=== PATIENT | female | born 1955 | race Caucasian/White ===

== ENCOUNTER 2020-11-14 06:39 | Outpatient (REF) | payer BC, SELFPAY ==
[2020-11-14 07:39] LABS: MANUAL DIFF FLAG NO
[2020-11-14 07:43] LABS: Basophils Percent Auto 0.4 % (0-2); Eosinophils Absolute Auto 0.2 X10*3/uL (0.0-0.4); Eosinophils Percent Auto 5.1 % (0-4); Hemoglobin 13.4 g/dl (12.0-16.0); Imm Gran Abs Auto 0.02 X10*3/uL (0.00-0.03); Imm Gran Pct Auto 0.4 % (0.0-0.4); Lymphocytes Absolute Auto 1.6 X10*3/uL (1.2-4.9); Lymphocytes Percent Auto 33.8 % (20-40); Mean Corpuscular HGB Conc 31.9 g/dl (31.0-35.0); Mean Corpuscular Hemoglobin 30.7 pg (27.0-33.0); Mean Corpuscular Volume 96.1 fL (80-98); Mean Platelet Volume 9.9 fL (9.4-12.3); Monocytes Absolute Auto 0.4 X10*3/uL (0.1-1.2); Monocytes Percent Auto 7.9 % (2-11); Neutrophils Absolute Auto 2.5 X10*3/uL (2.0-8.3); Neutrophils Percent Auto 52.4 % (45-73); Platelet Count 276 X10*3/uL (160-400); Red Blood Count 4.37 X10*6/uL (4.20-5.50); Red Cell Distribution Width 13.7 % (11.0-16.0); White Blood Count 4.7 X10*3/uL (4.8-10.8)
[2020-11-14 08:00] LABS: Glucose Urine UA NEG (NEG); Leukocyte Esterase Urine 2+ (NEG); Nitrite Urine NEG (NEG); PH 6.5 (5.0-8.0); Specific Gravity - Urine 1.025 (1.005-1.025); Urine Blood NEG (NEG); Urine Ketones NEG (NEG); Urine Protein NEG (NEG-TRACE)
[2020-11-14 08:07] LABS: Appearance Urine HAZY; Color Urine YELLOW
[2020-11-14 08:14] LABS: Estimated Average Glucose 108 mg/dL; Hemoglobin A1c % 5.4 %
[2020-11-14 08:43] LABS: Anion Gap 12 (12-20); Blood Urea Nitrogen 21 mg/dL (9-16); Calcium 8.9 mg/dL (8.4-10.2); Carbon Dioxide 28 mmol/L (22-29); Chloride 108 mmol/L (96-108); Cholesterol 204 mg/dL; Estimated Glomerular Filt Rate > 60; Glucose Fasting 90 mg/dL (60-99); HDL Cholesterol 53 mg/dL; LDL Cholesterol Calculated 128 mg/dl; Potassium 4.2 mmol/l (3.3-5.1); Sodium 144 mmol/L (135-145); Triglycerides 116 mg/dL
[2020-11-14 09:07] LABS: Bacteria Urine TRACE /LPF; RBC Urine 0 /HPF (0); Renal Epithelial Cells Urine 1+ /LPF; Squamous Epithelial Cell Urine 1+ /LPF; WBC Urine 30-49 /HPF (0-4)
== END 2020-11-14 06:40 | disposition home or self-care (01) ==
LOC: HO.LAB 06:39
PROVIDERS: PCP Internal Medicine; Visit Provider Internal Medicine
DX: Z00.00 Encounter for general adult medical examination without abnormal findings (principal); R73.09 Other abnormal glucose
CPT/HCPCS: 36415; 80048; 80061; 81001; 81003; 82043; 83036; 85025

== ENCOUNTER 2021-02-02 07:18 | Outpatient (REF) | payer BC, SELFPAY ==
--- NOTE | ~2021-02-02 | MM_ITS ---
EXAMINATION: BONE DENSITOMETRY CLINICAL INDICATION: Postmenopausal. COMPARISON: Baseline BD dated 11/10/2018. TECHNIQUE: Using a [employer] DXA System (software version: 13.1) manufactured by [employer], dual-energy x-ray absorptiometry was performed of the lumbar spine and left hip. The images are of good technical quality. Summary results are attached. FINDINGS: AP SPINE L1-L4: Current: BMD 0.938 g/cm2, Z-score -0.6, T-score -2.0, osteopenia, 7.2% increase from baseline (<5% change is not significant). Baseline: BMD 0.875 g/cm2. LEFT FEMUR, NECK: Current: BMD 0.800 g/cm2, Z-score -0.4, T-score -1.7, osteopenia. Baseline: BMD 0.807 g/cm2. LEFT FEMUR, TOTAL: Current: BMD 0.918 g/cm2, Z-score 0.3, T-score -0.7, normal, 6.4% increase from baseline (<5% change is not significant). Baseline: BMD 0.863 g/cm2. IDENTIFIED RISK FACTORS: Menopause. Height loss. HISTORY OF FRACTURE: None listed. MEDICATIONS: Calcium or multivitamin. Vitamin D. MM/XR DEXA axial skeleton IMPRESSION: 1. DIAGNOSIS: Osteopenia based on the lowest T-score value of -2.0 in the lumbar spine applying World Health Organization criteria. 2. 10-YEAR FRACTURE RISK PREDICTION, FRAX: Major osteoporotic fracture (clinical spine, forearm, hip or shoulder) 9.3%. Hip fracture 1.1%. 3. Treatment Recommendations: NOF guidelines recommend consideration for treatment in postmenopausal women and men age 50 and older presenting with the following: -A hip or vertebral (clinical or morphometric) fracture. -T-score less than or equal to -2.5 at the femoral neck or spine after appropriate evaluation to exclude secondary causes. -Low bone mass at the hip or spine and a 10-year fracture probability by FRAX of greater than or equal to 3% for hip fracture or greater than or equal to 20% for major osteoporotic fracture based on the [place] adapted WHO algorithm. 4. Other Recommendations: All treatment decisions require clinical judgment and consideration of individual patient factors, including patient preferences, comorbidities, previous drug use, risk factors not captured in the FRAX model (e.g. frailty, falls, vitamin D deficiency, increased bone turnover, interval significant decline in bone density) and possible under or overestimation of fracture risk by FRAX. Additional medical evaluation for secondary cause of low bone mineral density may be appropriate. FUTURE SCAN RECOMMENDATION: People with diagnosed cases of osteoporosis or at high risk for fracture should have regular bone mineral density tests. For patients eligible for Medicare, routine testing is allowed once every 2 years. The testing frequency can be increased to one year for patients who have rapidly progressing disease, those who are receiving or discontinuing medical therapy to restore bone mass, or have additional risk factors.
--- NOTE | ~2021-02-02 | MM_ITS ---
EXAMINATION: MM SCREENING DIGITAL BREAST TOMOSYNTHESIS, BILATERAL CLINICAL INFORMATION: Screening. Asymptomatic. The lifetime risk of breast cancer based on the Tyrer-Cuzick Model is 4.4%. COMPARISON: Mammography: October 01, 2019 and studies dating back to March 23, 2013 TECHNIQUE: Digital breast tomosynthesis is performed in both the craniocaudal and mediolateral oblique views along with computer-aided detection (CAD). Synthesized 2D images are generated from the tomosynthesis. FINDINGS: The breasts are heterogeneously dense, which may obscure small masses (ACR BI-RADS breast composition Category c). There are no significant masses, abnormal calcifications, or other abnormalities. MM/MM tomosynthesis screening BI IMPRESSION: There are no significant changes from prior study. ASSESSMENT: BI-RADS 1: Negative RECOMMENDATION: Routine annual mammography screening. This patient's information was entered into a reminder system with a target due date for their next mammogram.
== END 2021-02-02 07:19 | disposition home or self-care (01) ==
LOC: HO.MAMMO 07:18
PROVIDERS: PCP Internal Medicine; Visit Provider Internal Medicine
DX: Z13.820 Encounter for screening for osteoporosis (principal); Z78.0 Asymptomatic menopausal state; R29.890 Loss of height; Z79.899 Other long term (current) drug therapy; Z12.31 Encounter for screening mammogram for malignant neoplasm of breast
CPT/HCPCS: 77063; 77067; 77080

== ENCOUNTER 2022-01-10 11:33 | Outpatient (REF) | payer BC, SELFPAY ==
[2022-01-10 11:37] LABS: MANUAL DIFF FLAG NO
[2022-01-10 11:46] LABS: Basophils Percent Auto 0.4 % (0-2); Eosinophils Absolute Auto 0.2 X10*3/uL (0.0-0.4); Eosinophils Percent Auto 4.4 % (0-4); Hematocrit 46.6 % (37.0-47.0); Hemoglobin 14.8 g/dl (12.0-16.0); Imm Gran Abs Auto 0.01 X10*3/uL (0.00-0.03); Imm Gran Pct Auto 0.2 % (0.0-0.4); Lymphocytes Absolute Auto 1.8 X10*3/uL (1.2-4.9); Lymphocytes Percent Auto 34.2 % (20-40); Mean Corpuscular HGB Conc 31.8 g/dl (31.0-35.0); Mean Corpuscular Hemoglobin 30.2 pg (27.0-33.0); Mean Corpuscular Volume 95.1 fL (80.0-98.0); Mean Platelet Volume 10.4 fL (9.4-12.3); Monocytes Absolute Auto 0.4 X10*3/uL (0.1-1.2); Neutrophils Absolute Auto 2.8 x10*3/uL (2.0-8.3); Neutrophils Percent Auto 53.8 % (45-73); Platelet Count 295 X10*3/uL (160-400); Red Cell Distribution Width 12.7 % (11.0-16.0); White Blood Count 5.3 X10*3/uL (4.8-10.8)
[2022-01-10 11:58] LABS: Alanine Aminotransferase 20 U/L (0-31); Albumin Level 4.3 g/dL (3.5-5.0); Alkaline Phosphatase 75 U/L (39-117); Anion Gap 14 (12-20); Aspartate Amino Transferase 20 U/L (5-31); Bilirubin Total 0.7 mg/dL (0.0-1.0); Blood Urea Nitrogen 18 mg/dL (9-16); Calcium 9.9 mg/dL (8.4-10.2); Carbon Dioxide 26 mmol/L (22-29); Chloride 107 mmol/L (96-108); Cholesterol 208 mg/dL; Estimated Glomerular Filt Rate 51; Glucose Fasting 100 mg/dL (60-99); HDL Cholesterol 58 mg/dL; LDL Cholesterol Calculated 126 mg/dl; Potassium 4.5 mmol/L (3.3-5.1); Sodium 142 mmol/L (135-145); Total Protein 6.8 g/dL (6.5-8.0); Triglycerides 123 mg/dL
[2022-01-10 12:57] LABS: Estimated Average Glucose 105 mg/dL; Hemoglobin A1c % 5.3 %
== END 2022-01-10 11:34 | disposition home or self-care (01) ==
LOC: HO.LNP 11:33
PROVIDERS: Visit Provider Internal Medicine
DX: Z00.00 Encounter for general adult medical examination without abnormal findings (principal); R73.03 Prediabetes
CPT/HCPCS: 80053; 80061; 83036; 85025

== ENCOUNTER 2022-11-14 07:27 | Outpatient (REF) | payer BC, SELFPAY ==
--- NOTE | ~2022-11-14 | MM_ITS ---
EXAMINATION: MM SCREENING DIGITAL BREAST TOMOSYNTHESIS, BILATERAL CLINICAL INFORMATION: Screening. Asymptomatic. The lifetime risk of breast cancer based on the Tyrer-Cuzick Model is 3%. COMPARISON: Mammography: 02/02/2021, outside mammography 10/01/2019, 12/09/2014 ([facility]) TECHNIQUE: Digital breast tomosynthesis is performed in both the craniocaudal and mediolateral oblique views along with computer-aided detection (CAD). Synthesized 2D images are generated from the tomosynthesis. FINDINGS: The breasts are heterogeneously dense, which may obscure small masses (ACR BI-RADS breast composition Category c). There is a fibronodular parenchymal pattern similar to prior studies. No developing density or interval architectural abnormality. There are no significant masses, abnormal calcifications, or other abnormalities. The axilla and skin contours are unremarkable. MM/MM tomosynthesis screening BI IMPRESSION: No mammographic evidence of malignancy. ASSESSMENT: BI-RADS 1: Negative RECOMMENDATION: Routine annual mammography screening. This patient's information was entered into a reminder system with a target due date for their next mammogram.
== END 2022-11-14 07:28 | disposition home or self-care (01) ==
LOC: HO.MAMMO 07:27
PROVIDERS: PCP Internal Medicine; Visit Provider Internal Medicine
DX: Z12.31 Encounter for screening mammogram for malignant neoplasm of breast (principal)
CPT/HCPCS: 77063; 77067

== ENCOUNTER 2023-01-21 12:23 | Outpatient (REF) | payer BC, SELFPAY ==
[2023-01-21 12:26] LABS: MANUAL DIFF FLAG NO
[2023-01-21 13:17] LABS: Basophils Percent Auto 0.8 % (0-2); Eosinophils Absolute Auto 0.2 X10*3/uL (0.0-0.4); Eosinophils Percent Auto 3.9 % (0-4); Hemoglobin 14.6 g/dl (12.0-16.0); Imm Gran Abs Auto 0.01 X10*3/uL (0.00-0.03); Imm Gran Pct Auto 0.2 % (0.0-0.4); Lymphocytes Absolute Auto 1.8 X10*3/uL (1.2-4.9); Lymphocytes Percent Auto 35.9 % (20-40); Mean Corpuscular HGB Conc 31.7 g/dl (31.0-35.0); Mean Corpuscular Hemoglobin 30.9 pg (27.0-33.0); Mean Corpuscular Volume 97.3 fL (80.0-98.0); Mean Platelet Volume 10.4 fL (9.4-12.3); Monocytes Absolute Auto 0.3 X10*3/uL (0.1-1.2); Monocytes Percent Auto 6.4 % (2-11); Neutrophils Absolute Auto 2.6 x10*3/uL (2.0-8.3); Neutrophils Percent Auto 52.8 % (45-73); Platelet Count 294 X10*3/uL (160-400); Red Blood Count 4.73 X10*6/uL (4.20-5.50); White Blood Count 4.9 X10*3/uL (4.8-10.8)
[2023-01-21 13:27] LABS: Alanine Aminotransferase 14 U/L (0-31); Albumin Level 4.2 g/dL (3.5-5.0); Alkaline Phosphatase 72 U/L (39-117); Anion Gap 13 (12-20); Aspartate Amino Transferase 19 U/L (5-31); Bilirubin Total 0.6 mg/dL (0.0-1.0); Blood Urea Nitrogen 20 mg/dL (9-16); Calcium 9.2 mg/dL (8.4-10.2); Carbon Dioxide 28 mmol/L (22-29); Chloride 108 mmol/L (96-108); Cholesterol 206 mg/dL; Estimated Glomerular Filt Rate 57; Glucose Fasting 102 mg/dL (60-99); HDL Cholesterol 58 mg/dL; LDL Cholesterol Calculated 125 mg/dl; Potassium 4.6 mmol/L (3.3-5.1); Sodium 144 mmol/L (135-145); Total Protein 6.3 g/dL (6.5-8.0); Triglycerides 115 mg/dL
[2023-01-21 13:50] LABS: Estimated Average Glucose 103 mg/dL; Hemoglobin A1c % 5.2 %
[2023-01-21 13:56] LABS: Appearance Urine Clear; Color Urine Yellow; Glucose Urine UA Negative (Negative); Leukocyte Esterase Urine Large (3+) (Negative); Nitrite Urine Negative (Negative); UMIC TRIGGER UACC YES; Urine Blood Negative (Negative); Urine Ketones Negative (Negative); Urine Protein Negative (Neg-Trace)
[2023-01-21 14:16] LABS: RBC Urine 0-2 /HPF (0-2); UACC Culture Trigger YES
[2023-01-21 14:17] LABS: Bacteria Urine Trace (None Seen); Hyaline Casts Urine 0-2 /LPF (0-2); Squamous Epithelial Cell Urine 0-2 /HPF (0-2)
[2023-01-21 14:21] LABS: Creatinine Urine 184.54 mg/dL; Microalbum/Creatinine Ratio Ur 13.5 ug/mg cr
== END 2023-01-21 12:24 | disposition home or self-care (01) ==
LOC: HO.LNP 12:23
PROVIDERS: Visit Provider Internal Medicine
DX: Z00.00 Encounter for general adult medical examination without abnormal findings (principal); R73.03 Prediabetes; R82.90 Unspecified abnormal findings in urine
CPT/HCPCS: 80053; 80061; 81001; 82043; 83036; 85025; 87086

== ENCOUNTER 2024-01-22 10:54 | Outpatient (REF) | payer MEDICARE, SELFPAY ==
[2024-01-22 10:57] LABS: MANUAL DIFF FLAG NO
[2024-01-22 11:27] LABS: Basophils Percent Auto 0.2 % (0-2); Eosinophils Absolute Auto 0.2 X10*3/uL (0.0-0.4); Eosinophils Percent Auto 3.3 % (0-4); Hematocrit 46.4 % (37.0-47.0); Hemoglobin 14.6 g/dl (12.0-16.0); Imm Gran Abs Auto 0.02 X10*3/uL (0.00-0.03); Imm Gran Pct Auto 0.4 % (0.0-0.4); Lymphocytes Absolute Auto 1.7 X10*3/uL (1.2-4.9); Lymphocytes Percent Auto 34.2 % (20-40); Mean Corpuscular HGB Conc 31.5 g/dl (31.0-35.0); Mean Corpuscular Volume 95.5 fL (80.0-98.0); Mean Platelet Volume 10.3 fL (9.4-12.3); Monocytes Absolute Auto 0.4 X10*3/uL (0.1-1.2); Monocytes Percent Auto 7.5 % (2-11); Neutrophils Absolute Auto 2.6 x10*3/uL (2.0-8.3); Neutrophils Percent Auto 54.4 % (45-73); Platelet Count 314 X10*3/uL (160-400); Red Blood Count 4.86 X10*6/uL (4.20-5.50); Red Cell Distribution Width 13.2 % (11.0-16.0); White Blood Count 4.8 X10*3/uL (4.8-10.8)
[2024-01-22 11:47] LABS: Estimated Average Glucose 103 mg/dL; Hemoglobin A1c % 5.2 % (<6.0)
[2024-01-22 11:58] LABS: Appearance Urine Clear; Color Urine Yellow; Glucose Urine UA Negative (Negative); Leukocyte Esterase Urine Small (1+) (Negative); Nitrite Urine Negative (Negative); UMIC TRIGGER UACC YES; Urine Blood Negative (Negative); Urine Ketones Negative (Negative); Urine Protein Negative (Neg-Trace)
[2024-01-22 12:04] LABS: Alanine Aminotransferase 20 U/L (0-31); Albumin Level 4.2 g/dL (3.5-5.0); Alkaline Phosphatase 96 U/L (39-117); Anion Gap 8 (12-20); Aspartate Amino Transferase 18 U/L (5-31); Bilirubin Total 0.4 mg/dL (0.0-1.0); Blood Urea Nitrogen 21 mg/dL (9-16); Calcium 9.4 mg/dL (8.4-10.2); Carbon Dioxide 29 mmol/L (22-29); Chloride 106 mmol/L (96-108); Cholesterol 206 mg/dL (<200); Estimated Glomerular Filt Rate > 60; Glucose Fasting 108 mg/dL (60-99); HDL Cholesterol 69 mg/dL (>40); LDL Cholesterol Calculated 120 mg/dL (<100); Sodium 139 mmol/L (135-145); Triglycerides 89 mg/dL (<150)
[2024-01-22 12:06] LABS: Microalbumin Urine < 5.0 mg/L
[2024-01-22 12:25] LABS: Bacteria Urine None Seen (None Seen); Hyaline Casts Urine 0-2 /LPF (0-2); RBC Urine 0-2 /HPF (0-2); Squamous Epithelial Cell Urine 0-2 /HPF (0-2); UACC Culture Trigger YES; WBC Urine 0-5 /HPF (0-5)
== END 2024-01-22 10:55 | disposition home or self-care (01) ==
LOC: HO.LNP 10:54
PROVIDERS: Visit Provider Internal Medicine
DX: Z00.00 Encounter for general adult medical examination without abnormal findings (principal); R73.03 Prediabetes
CPT/HCPCS: 80053; 80061; 81001; 82043; 82570; 83036; 85025; 87086

== ENCOUNTER 2024-02-04 10:47 | Outpatient (REF) | payer MEDICARE, SELFPAY ==
--- NOTE | ~2024-02-04 | XR_ITS ---
EXAMINATION: XR KNEE, LEFT CLINICAL INFORMATION: Chronic pain, without injury. COMPARISON: None available. TECHNIQUE: Frontal, tunnel and lateral views of the left knee are submitted. FINDINGS: Bony alignment and mineralization are normal. The lateral, medial and patellofemoral joint space compartments are well-maintained. There is slight peripheral osteophyte formation of the medial and patellofemoral joint space compartments. No fracture, dislocation or joint effusion is seen. There is no foreign body. XR/XR knee LT 3V IMPRESSION: 1. There is minimal osteoarthritic change of the medial and patellofemoral joint space compartments of the left knee. 2. No fracture, dislocation or joint effusion is seen.
--- NOTE | ~2024-02-04 | XR_ITS ---
EXAMINATION: XR HIP, RIGHT CLINICAL INFORMATION: Arthritis. COMPARISON: None available. TECHNIQUE: AP and frog-leg lateral views of the right hip. FINDINGS: No fracture. Alignment is anatomic. Hip joint space is maintained. Soft tissues are unremarkable. XR/XR hip RT min 2V IMPRESSION: Normal right hip.
== END 2024-02-04 10:48 | disposition home or self-care (01) ==
LOC: HO.MAMMO 10:47
PROVIDERS: PCP Internal Medicine; Visit Provider Internal Medicine
DX: Z12.31 Encounter for screening mammogram for malignant neoplasm of breast (principal); M17.12 Unilateral primary osteoarthritis, left knee; M16.11 Unilateral primary osteoarthritis, right hip
CPT/HCPCS: 73502; 73562; 77063; 77067

== ENCOUNTER → 2024-02-04 11:15 | Outpatient (BNV) | payer MEDICARE, SELFPAY | PROVIDERS: PCP Internal Medicine; Visit Provider Radiology Diagnostic Radiology | DX: Z12.31 Encounter for screening mammogram for malignant neoplasm of breast (principal) | CPT/HCPCS: 77063; 77067 ==

== ENCOUNTER 2024-09-13 10:09 | Outpatient (REF) | payer MEDICARE, SELFPAY | END 2024-09-13 10:10 | disposition home or self-care (01) | LOC: HO.MRI 10:09 | PROVIDERS: PCP Internal Medicine; Visit Provider Physical Medicine & Rehabilitation | DX: M54.16 Radiculopathy, lumbar region (principal) | CPT/HCPCS: 72148 ==

== ENCOUNTER 2025-01-27 09:51 | Outpatient (REF) | payer MEDICARE, SELFPAY ==
[2025-01-27 09:54] LABS: MANUAL DIFF FLAG NO
[2025-01-27 10:14] LABS: Basophils Percent Auto 0.6 % (0-2); Eosinophils Absolute Auto 0.2 X10*3/uL (0.0-0.4); Eosinophils Percent Auto 3.6 % (0-4); Hematocrit 46.2 % (37.0-47.0); Hemoglobin 14.7 g/dl (12.0-16.0); Imm Gran Abs Auto 0.02 X10*3/uL (0.00-0.03); Imm Gran Pct Auto 0.4 % (0.0-0.4); Lymphocytes Absolute Auto 1.9 X10*3/uL (1.2-4.9); Lymphocytes Percent Auto 38.6 % (20-40); Mean Corpuscular HGB Conc 31.8 g/dl (31.0-35.0); Mean Corpuscular Hemoglobin 30.4 pg (27.0-33.0); Mean Corpuscular Volume 95.5 fL (80.0-98.0); Mean Platelet Volume 10.1 fL (9.4-12.3); Monocytes Absolute Auto 0.4 X10*3/uL (0.1-1.2); Monocytes Percent Auto 7.8 % (2-11); Neutrophils Absolute Auto 2.4 x10*3/uL (2.0-8.3); Platelet Count 300 X10*3/uL (160-400); Red Blood Count 4.84 X10*6/uL (4.20-5.50); Red Cell Distribution Width 13.2 % (11.0-16.0)
[2025-01-27 10:27] LABS: Estimated Average Glucose 105 mg/dL; Hemoglobin A1C 134.6844 umol/L; Hemoglobin A1c % 5.3 % (<6.0)
[2025-01-27 10:31] LABS: Alanine Aminotransferase 23 U/L (0-31); Albumin Level 4.3 g/dL (3.5-5.0); Alkaline Phosphatase 83 U/L (39-117); Anion Gap 10 (12-20); Aspartate Amino Transferase 23 U/L (5-31); Bilirubin Total 0.5 mg/dL (0.0-1.0); Blood Urea Nitrogen 21 mg/dL (9-16); Calcium 9.2 mg/dL (8.4-10.2); Carbon Dioxide 28 mmol/L (22-29); Chloride 109 mmol/L (96-108); Cholesterol 185 mg/dL (<200); Estimated Glomerular Filt Rate > 60; Glucose Fasting 94 mg/dL (60-99); HDL Cholesterol 61 mg/dL (>40); LDL Cholesterol Calculated 103 mg/dL (<100); Potassium 4.1 mmol/L (3.3-5.1); Sodium 143 mmol/L (135-145); Total Protein 6.8 g/dL (6.5-8.0); Triglycerides 109 mg/dL (<150)
[2025-01-27 10:41] LABS: Appearance Urine Clear; Color Urine Yellow; Glucose Urine UA Negative (Negative); Leukocyte Esterase Urine Moderate (2+) (Negative); Nitrite Urine Negative (Negative); PH 6.5 (5.0-9.0); Specific Gravity - Urine 1.025 (1.005-1.025); UMIC TRIGGER UACC YES; Urine Blood Negative (Negative); Urine Ketones Negative (Negative); Urine Protein Negative (Neg-Trace)
[2025-01-27 10:50] LABS: Bacteria Urine None Seen (None Seen); Hyaline Casts Urine 0-2 /LPF (0-2); RBC Urine 0-2 /HPF (0-2); Squamous Epithelial Cell Urine 0-2 /HPF (0-2); UACC Culture Trigger YES
[2025-01-27 10:52] LABS: Creatinine Urine 121.04 mg/dL; Microalbum/Creatinine Ratio Ur 6.6 ug/mg cr (<30)
--- OUTSIDE RECORDS SUMMARY | 2025-01-27 11:16 | XMS_ITS ---
Author Organization Esa Fleming MD Address [address] [place] [phone] Care Team Providers Care 21 Dealer Name Role Phone Esa Fleming Primary Care Provider [phone] Allergies Allergen (clinical drug ingredient) Drug/Non Drug Allergy documented on EMR Reaction Allergy Type Onset Date Status Codeine Phosphate rash Drug Allergy Active REASON FOR VISIT 4 week Medications Medication SIG (Take, Route, Fr equency, Duration) Notes Start Date End Date Status Ibuprofen 800 MG 1 tablet Orally two times a day for 14 days 06/23/2014 Active Vital Signs Blood pressure systolic 122 mm Hg 08/09/20 24 Blood pressure diastolic 66 mm Hg 024 Height 61 in 08/09/2024 Weight 163 lbs 08/09/2024 BMI 30.80 kg/m2 08/09/2024 Encounters Encounter Location Date Provider Diagnosis Esa Fleming MD [address] [place] [address] [phone] 08/09/2024 Esa Fleming Sciatica of right side M54.31 Assessments Encounter Date Diagnosis (ICD Code) Assessment Notes Treatment Notes Treatment Clinical Notes Section Notes 08/09/2024 Sciatica of right side (ICD-10 - M54.31) awaiting pssp/ long discussion concerning disc treatment and whether and when is needed, Total time spent on the date of the encounter is 35 minutes including both face to face time spent and time spent reviewing documentation, and counseling the patient. Plan Of Treatment Treatment Notes Assessment Notes Sciatica of right side awaiting pssp/ lo ng discussion concerning disc treatment and whether and when is needed, Total time spent on the date of the encounter is 35 minutes including both face to face time spent and time spent reviewing documentation, and counseling the patient. Next Appt Details Provider Name:Esa Evans ier, 02/03/2025 09:30:00 AM, [address] [facility], [address], [place], [place], [phone], Progress Notes * Lo HIDALGO ADOB:1954 (69 yo F)Acc No.[id number]:08/09/2024 Progress Notes Patient:?Lo Hidalgo A Provider:?Esa Fleming MD :[id number]???Age:69 Y???Sex:Female D ate:08/09/2024 Address:[address] [place], [place] [id number] Subjective: * Chief Complaints: * ???4 week * HPI: ???Symptom(s):? patient is a 69 yo female here for 4 week follow up visit, still waiting for mri. [facility] and they say they are going to get the mri. is a little better. feels just a little. limp gone. was lifting bricks all weekend. * ROS:?General/Constitutional:?Denies?Chills.?Denies?Fatigue.?Denies?Fever.?Denies?Headache.?ENT:?Patient denies?decreased sense of smell , any loss of taste , sore throat.?Denies?Sore throat.?Respiratory:?Denies?Cough.?Denies?Shortness of breath at rest.?Denies?Shortness of breath with exertion.?Gastrointestinal:?Denies?Diarrhea.?Denies?Nausea.?Musculoskeletal:?Patient denies?muscle aches.?Peripheral Vascular:?Patient denies?red and blue toes.? * Medical History:? * Surgical History:? * Hospitalization/Major Diagno stic Procedure:? * Medications:?TakingIbuprofen 800 MG Tablet 1 tablet Orally two times a dayMedication List reviewed and reconciled with the patientTaking Ibuprofen 800 MG Tablet 1 tablet Orally two times a dayMedication List reviewed and reconciled with the patient * Allergies:?Codeine Phosphate : rashyes[Allergies Verified] Objective: * Vitals:?Ht: 61, Wt:163, BMI: 30.80, BP:122/66. * Examination: ???General Examination: ?GENERAL APPEARANCE:? alert, well hydrated, in no distress .?SKIN:? good turgor.?HEART:? regular rate and rhythm, no murmurs, rubs, gallops.?NEUROLOGIC:? normal dtr's and strength.? Assessment: * Assessment: 1.?Sciatica of right side - M54.31 (Primary)? Plan: * Treatment: * Procedure Codes:? * * Sign off status: Completed true * Provider:?Esa Fleming MD Date:?1 Generated for Jessa sanchez/Emanuel/eTrafasmitting on:?01/27/2025 11:16 AM EDT History and Physical Notes * HPI (History of Present Illness) Category Sub-Category Detail Notes Category Not es Symptom(s) patient is a 69 yo female here for 4 week follow up visit, still waiting for mri. [facility] and they say they are going to get the mri. is a little better. feels just a little. limp gone. was lifting bricks all weekend Examination Category Sub-Category Detail Notes Category Not es General Examination GENERAL APPEARANCE: alert, w ell hydrated, in no distress HEART: regular rate and rhy thm, no murmurs, rubs, gallops NEUROLOGIC: normal dtr's and str ength SKIN: good turgor
--- OUTSIDE RECORDS SUMMARY | 2025-01-27 11:16 | XMS_ITS | Patient Health Record ---
Author Organization Esa Fleming MD Address [address] [place], [place] [id number] Care Team Providers Care Temper [employer] Name Role Phone Esa Fleming Primary Care Provider [phone] Allergies Allergen (clinical drug ingredient) Drug/Non Drug Allergy documented on EMR Reaction Allergy Type Onset Date Status Codeine Phosphate rash Drug Allergy Active Results Component Value Reference Range Notes XR knee LT 3V Reviewed date:02/12/2024 08:59:10 AM Interpretation: Performing Lab: Notes/Report: [address] [place] [address] XRay Report Signed Patient: Lo Hidalgo MR#: [id number] 642 : 1955 Acct:[id number] Age/Sex: 68 / F ADM Date: 02/04/24 Loc: CIRO Attending Dr: Esa Fleming MD Ordering Physician: Esa Fleming MD Date of Service: 02/04/24 Procedure(s): XR knee LT 3V Accession Number(s): [id number] cc: Esa Fleming MD EXAMINATION: XR KNEE, LEFT CLINICAL INFORMATION: Chronic pain, without injury. COMPARISON: None available. TECHNIQUE: Frontal, tunnel and lateral views of the left knee are submitted. FINDINGS: Bony alignment and mineralization are normal. The lateral, medial and patellofemoral joint space compartments are well-maintained. There is slight peripheral osteophyte formation of the medial and patellofemoral joint space compartments. No fracture, dislocation or joint effusion is seen. There is no foreign body. XR/XR knee LT 3V IMPRESSION: 1. There is minimal osteoarthritic change of the medial and patellofemoral joint space compartments of the left knee. 2. No fracture, dislocation or joint effusion is seen. Dictated By: Tj Pineda MD Signed By: <Electronically signed by Tj Pineda MD in OV> 02/11/24 1649 DD/ 1212 TD/TT: Talent Acquisition Project Manager: VICKI [place] [facility]'[address] [place] [address] XRay Report Signed Patient: Rea Hidalgo MR#: [id number] 642 : 1955 Acct:[id number] Age/Sex: 68 / F ADM Date: 02/04/24 Loc: HO.MAMMO Attending Dr: Esa Fleming MD Ordering Physician: Esa Fleming MD Date of Service: 02/04/24 Procedure(s): XR kne e LT 3V Accession Number(s): [id number] cc: Esa Fleming MD EXAMINATION: XR KNEE, LEFT CLINICAL INFORMATION: Chronic pain, withou t injury. COMPARISON: None available. TECHNIQUE: Frontal, tunnel and lateral views of the left knee are submitted. FINDINGS: Bony alignment and mineralization are normal. The lateral, medial and patellofemoral joint space compartments are well-maintained. There is slight peripheral osteophyte formation of the medial and patellofemoral joint space compartments. No fracture, dislocation or joint effusion is seen. There is no foreign body. X R/XR knee LT 3V IMPRESSION: 1. There is minimal osteoarthritic change of the medial and patellofemoral joint space compartments of the left knee. 2. No fracture, dislocation or joint effusion is seen. Dictated By: Nhung Pineda MD Signed By: <Electronically signed by Tj Pineda MD in OV> 02/11/241648 DD/ 1212 TD/TT: Swimming Pool Cleaner ist: VICKI XR hip RT min 2V Reviewed date:02/12/2024 07:56:08 AM Interpretation: Performing Lab: Notes/Report: [address] [place] [address] XRay Report Signed Patient: Lo Hidalgo MR#: [id number] 642 : 1955 Acct:[id number] Age/Sex: 68 / F ADM Date: 02/04/24 Loc: CIRO Attending Dr: Esa Fleming MD Ordering Physician: Esa Fleming MD Date of Service: 02/04/24 Procedure(s): XR hip RT min 2V Accession Number(s): [id number] cc: Esa Fleming MD EXAMINATION: XR HIP, RIGHT CLINICAL INFORMATION: Arthritis. COMPARISON: None available. TECHNIQUE: AP and frog-leg lateral views of the right hip. FINDINGS: No fracture. Alignment is anatomic. Hip joint space is maintained. Soft tissues are unremarkable. XR/XR hip RT min 2V IMPRESSION: Normal right hip. Dictated By: Tj Pineda MD Signed By: <Electronically signed by Tj Pineda MD in OV> 02/11/241648 DD/ 1212 TD/TT: Talent Acquisition Project Manager: VICKI [address] [place] [address] XRay Report Signed Patient: Rea Hidalgo MR#: [id number] 642 : 1955 Acct:[id number] Age/Sex: 68 / F ADM Date: 02/04/24 Loc: CIRO Attending Dr: Esa Fleming MD Ordering Physician: Esa Fleming MD Date of Service: 02/04/24 Procedure(s): XR hip RT min 2V Accession Number(s): [id number] cc: Esa Fleming MD EXAMINATION: XR HIP, RIGHT CLINICAL INFORMATION: Arthritis. COMPARISON: None available. TECHNIQUE: AP and frog-leg late ral views of the right hip. FINDINGS: No fracture. Alignme nt is anatomic. Hip joint space is maintained. Soft tissues are unremarkable. X R/XR hip RT min 2V IMPRESSION: Normal right hip. Dictated By: Nhung Pineda MD Signed By: <Electronically signed by Tj Pineda MD in OV> 02/11/24 1649 DD/ 1212 TD/TT: Talent Acquisition Project Manager: VICKI MM tomosynthesis screening B I Reviewed date:03/02/2024 04:12:21 PM Interpretation: Performing Lab: Notes/Report: [address] [place] [address] Mammography Report Signed Patient: Lo Hidalgo MR#: [id number] 642 : 1955 Acct:[id number] Age/Sex: 68 / F ADM Date: 02/04/24 Loc: HO.MAMMO Attending Dr: Esa Fleming MD Ordering Physician: Esa Fleming MD Results: 1Ne gative Date of Service: 02/04/24 Follow Up: 1 Year From [facility] ina Mammogram Procedure(s): MM tomosynthesis screening BI Accession Number(s): [id number] cc: Esa Fleming MD EXAMINATION: MM SCREENING DIGITAL BREAST TOMOSYNTHESIS, BILATERAL CLINICAL INFORMATION: Screening. Asymptomatic. COMPARISON: Mammography: This study is compared with prior exams dating back to 2019. TECHNIQUE: Digital breast tomosynthesis is performed in both the craniocaudal and mediolateral oblique views along with computer-aided detection (CAD). Synthesized 2D images are generated from the tomosynthesis. FINDINGS: The breasts are heterogeneously dense, which may obscure small masses (ACR BI-RADS breast composition Category c). There are no significant masses, abnormal calcifications, or other abnormalities. MM/MM tomosynthesis screening BI IMPRESSION: No mammographic evidence of malignancy. ASSESSMENT: BI-RADS BI-RADS 1 - Negative RECOMMENDATION: Routine annual mammography screening. 1 year F/U This examination should not preclude the clinical evaluation of a suspicious palpable abnormality. This patient's information was entered into a reminder system with a target due date for their next mammogram. Dictated By: Deisi Dumont MD Signed By: <Electronically signed by Deisi Dumont MD in OV> 03/01/24 0845 DD/ 111 TD/TT: Talent Acquisition Project Manager: [facility] [address] [place] [address] Mammography Report Signed Patient: Rea Hidalgo MR#: [id number] 642 : 1955 Acct:[id number] Age/Sex: 68 / F ADM Date: 02/04/24 Loc: HO.MAMMO Attending Dr: Esa Fleming MD Ordering Physician: Esa Fleming MD Results: 1Ne gative Date of Service: 02/04/24 Follow Up: 1 Year From Orig inal Mammogram Procedure(s): MM tomosynthesis screening BI Accession Number(s): [id number] cc: Esa Fleming MD EXAMINATION: MM SCREENING DIGITAL BREAST TOMOSYNTHESIS, BILATERAL CLINICAL INFORMATION: Screening. Asymptomatic. COMPARISON: Mammography: This st udy is compared with prior exams dating back to 2019. TECHNIQUE: Digital breast tomosynthesis is performed in both the craniocaudal and mediolateral oblique views along with computer-aided detection (CAD). Synthesized 2D image s are generated from the tomosynthesis. FINDINGS: The breasts are heterogeneously dense, which may obscure small masses (ACR BI-RADS breast composition Category c). There are no signifi cant masses, abnormal calcifications, or other abnormalities. M M/MM tomosynthesis screening BI IMPRESSION: No mammographic evid ence of malignancy. ASSESSMENT: BI-RADS BI-RADS 1 - Negative RECOMMENDATION: Routine annual mammography screening. 1 year F/U This examination chepe uld not preclude the clinical evaluation of a suspicious palpable abnormality. This patient's information was entered into a reminder system with a target due date for their next mammogram. Dictated By: Deisi Dumont MD Signed By: <Electronically signed by Deisi Dumont MD in OV> 03/01/24 0845 DD/ 1116 TD/TT: Talent Acquisition Project Manager: MR lumbar spine wo con Reviewed date:11/12/2024 03:11:52 PM Interpretation:see back 11-11-2024 Performing Lab: Notes/Report: [address] [address] Magnetic Resonance Report Signed Patient: Lo Hidalgo MR#: [id number] 642 : 1955 Acct:[id number] Age/Sex: 69 / F ADM Date: 09/13/24 Loc: HO.MRI Attending Dr: Antolin Peterson DO Ordering Physician: Antolin Peterson DO Date of Service: 09/13/24 Procedure(s): MR lumbar spine wo con Accession Number(s): [id number] cc: Esa Fleming MD; Antolin Peterson DO EXAMINATION: MR LUMBAR SPINE WITHOUT CONTRAST CLINICAL INFORMATION: 69-year-old with radiculopathy. Self-reported right leg pain and weakness. COMPARISON: None available. TECHNIQUE: MRI of the lumbar spine was obtained using routine sequences without contrast. FINDINGS: CORONAL ALIGNMENT: Moderate mid lumbar levoscoliosis, convex to the left at L2-L3 noted with mild wjvzb-xe-jnie lateral listhesis at L3-L4 and mild uxef-he-brhwa lateral listhesis at L2-L3. SAGITTAL ALIGNMENT: There is 2 mm of 5 grade 1 degenerative spondylolisthesis at L4-L5. There is 4 mm of grade 1 degenerative spondylolisthesis at L3-L4. There is jmpx-vg-vtltgyth hyperlordosis centered at L2-L3. Mild retrolisthesis noted at L1-L2. LUMBOSACRAL JUNCTION: Transitional lumbosacral anatomy with lowest lumbar-like segment labeled as L5, which is partially sacralized on the right. VERTEBRAL BODIES: Vertebral body heights are well maintained. DISC SPACES AND ENDPLATES: Yyxwmunt-qj-nbtecu intervertebral disc space height loss is noted asymmetric to the right at L3-L4 and L2-L3 and cksxbsbe-hc-acydnf diffuse disc space height loss at L1-L2 with moderate disc volume loss asymmetric to the left at L4-L5 with multilevel intradiscal degenerative signal changes and mild degrees of spondylosis at these levels. Central Schmorl's nodes are noted at L2-L3 and L1-L2. Partially imaged ctthxxbc-lf-sjhkkz disc space height loss with disc degenerative change, Schmorl's nodes and spondylosis at T10-T11. SPINAL CANAL: No abnormal developmental findings. BONE MARROW: Type I degenerative marrow signal changes along the endplates noted at L2-L3 asymmetric to the right and type II degenerative marrow signal changes along the endplates at L1-L2. No suspicious marrow-replacing process. CONUS MEDULLARIS: Terminates at T12-L1. Morphology and signal is normal. INTRADURAL NERVE ROOTS: Within normal limits. L5-S1: Normal annular contour. Transitional level. Minor degenerative facet arthrosis bilaterally. No canal or foraminal stenosis. L4-L5: Concentric disc bulging with slight unroofing of the posterior disc margin and transverse annular fissuring centrally. Mild flattening of the dural sac is noted slightly asymmetric to the left. Vxijaqyr-tn-igwopw left-sided and wlrh-ao-xzzrgxlj right-sided facet joint arthropathy noted without central canal stenosis. Narrowing of the left subarticular and lateral recess is noted with slight encroachment on the traversing left L5 nerve root. Mkra-hr-hzpsjkvn left-sided neural foraminal stenosis is noted without neural impingement. L3-L4: Unroofing of the posterior disc margin is noted with superimposed disc bulging, asymmetric to the right, with flattening of the ventral dural sac. Ligamentum flavum thickening and probable partial calcification of the ligamentum flavum on the right with interspinous ligament degeneration is noted with sfchrdnm-ld-zfiufi bilateral facet joint arthropathy. Nedf-vy-uetvthvd central spinal canal stenosis is noted with crowding of the intradural nerve roots, with bilateral subarticular and lateral recess stenosis with probable encroachment on the traversing right L4 nerve root. Moderate right-sided and mild left-sided neural foraminal stenosis is noted. Cystic changes are seen within the spinous processes adjacent to the interspinous ligament with T2 hyperintensity within the interspinous ligament space, suggesting Baastrup's disease. L2-L3: Disc bulging is noted with a superimposed right-sided foraminal/extraforaminal disc protrusion, with mild flattening of the ventral dural sac. Ligamentum flavum thickening is noted with interspinous ligament degeneration with mild left and moderate right-sided facet joint arthropathy. No significant central canal stenosis. Mild narrowing of the right subarticular recess noted without neural impingement. Moderate right-sided neural foraminal stenosis noted without neural impingement. L1-L2: Mild retrolisthesis noted with disc bulging and mild flattening of the dural sac. Minor facet joint arthropathy noted without canal stenosis. Mild foraminal narrowing noted on the right. PARAVERTEBRAL AND INCLUDED EXTRASPINAL SOFT TISSUES: The paravertebral soft tissues appear unremarkable. There are multiple simple-appearing left renal parapelvic cysts which are partially included in the ywymj-ms-sivr. Limited evaluation. No specific follow up recommended based on the current ACR Best Practice Guidelines. MR/MR lumbar spine wo con IMPRESSION: 1. Lumbar levoscoliosis, with grade 1 degenerative spondylolisthesis at L3-L4 and L4-L5 and mild retrolisthesis at L1-L2. 2. Multilevel DDD and spondylosis, with multilevel disc bulging and right lateral disc herniation at L2-L3 with posterior element hypertrophic degenerative changes and interspinous ligament degeneration as detailed by level above. 3. Djwf-gh-rajmxhbx central spinal canal stenosis at L3-L4 with crowding of the intradural nerve roots and bilateral subarticular lateral recess stenosis, right more than left, with probable encroachment on the traversing right L4 nerve root. 4. Left subarticular recess stenosis at L4-L5 with slight encroachment on the traversing left L5 nerve root. 5. 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 6. 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 7. Multilevel predominately htsn-ss-smkfxyqq degrees of neural foraminal stenosis, most apparent on the right at L3-L4 and L2-L3. 8. Transitional lumbosacral anatomy. The L5 vertebral body is partially sacralized on the right. Electronically signed by: Allen Siegel MD 11/01/2024 03:52 PM [facility] [place]ictated By: ALLEN SIEGEL MD Signed By: <Electronically signed by ALLEN SIEGEL MD in OV> 11/01/24 1552 DD/ 1030 TD/TT: 09/13/24 1100 Talent Acquisition Project Manager: [address] [address] Magnetic Resonance Report Signed Patient: Rea Hidalgo MR#: [id number] 642 : 1955 Acct:[id number] Age/Sex: 69 / F ADM Date: 09/13/24 Loc: HO.MRI Attending Dr: Antolin Peterson DO Ordering Physician: Antolin Peterson DO Date of Service: 09/13/24 Procedure(s): MR lum bar spine wo con Accession Number(s): [id number] cc: Esa Fleming MD; Antolin Peterson DO EXAMINATION: MR LUMBAR SPINE WITH OUT CONTRAST CLINICAL INFORMATION: 69-year-old with radiculopathy. Self-reported right leg pain and weakness. COMPARISON: None available. TECHNIQUE: MRI of the lumbar sp ine was obtained using routine sequences without contrast. FINDINGS: CORONAL ALIGNMENT: Moderate mid lumbar levoscoliosis, convex to the left at L2-L3 noted with mild swrdf-jm-tkdb lateral listhesis at L3-L4 and mild left-to-rig ht lateral listhesis at L2-L3. SAGITTAL ALIGNMENT: There is 2 mm of 5 grade 1 degenerative spondylolisthesis at L4-L5. There is 4 mm of grade 1 degenerative spondylolisthesis at L3-L4. There is tcgt-aq-qpukjeze hyperlordosis centered at L2-L3. M ild retrolisthesis noted at L1-L2. LUMBOSACRAL JUNCTION : Transitional lumbosacral anatomy with lowest lumbar-like segment labeled as L5, which is partially sacralized on the right. VERTEBRAL BODIES: Vertebral body heights are well maintained. DISC SPACES AND ENDPLATES: Vtkpwxix-xm-iurfdm intervertebral disc space height loss is noted asymmetric to the right at L3-L4 and L2-L3 and zkuaesdh-ec-vcgeqx diffuse disc space height loss at L1-L2 with moderate disc volume loss asymmetric to the left at L4-L5 with multilevel intradisc al degenerative signal changes and mild degrees of spondylosis at these levels. Central Schmorl's nodes are noted at L2-L3 and L1-L2. Partially imaged zekcwirk-og-aqpqcg disc space height loss with disc degenerati ve change, Schmorl's nodes and spondylosis at T10-T11. SPINAL CANAL: No abnormal developmental findings. BONE MARROW: Type I degenerative marrow signal changes along the endplates noted at L 2-L3 asymmetric to the right and type II degenerative marrow signal changes along the endplates at L1-L2. No suspicious marrow-replacing process. CONUS MEDULLARIS: Terminates at T12-L1. Morphology and signal is normal. INTRADURAL NERVE LUISANA TS: Within normal limits. L5-S1: Normal annula r contour. Transitional level. Minor degenerative facet arthrosis bilaterally. No canal or foraminal stenosis. L4-L5: Concentric di sc bulging with slight unroofing of the posterior disc margin and transverse annular fissuring centrally. Mild flattening of the dural sac is noted slightly asymmetric to the left. Oievkkqt-pm-haljsg left-sided and tdzz-hy-oypgxqmp right-sided facet joint arthropathy no petty without central canal stenosis. Narrowing of the left subarticula r and lateral recess is noted with slight encroachment on the traversing left L5 nerve root. Qqid-sx-khihbomq left-sided neural foraminal stenosis is noted without neural impingement. L3-L4: Unroofing of the posterior disc margin is noted with superimposed disc bulging, asymmetric to the right, with flattening of the ventral dural sa c. Ligamentum flavum thickening and probable partial calcificatio n of the ligamentum flavum on the right with interspinous ligamen t degeneration is noted with dmcqkrnl-bw-xpjxfb bilateral facet join t arthropathy. Ijrx-ty-zhninggx central spinal canal stenosis is no petty with crowding of the intradural nerve roots, with bilateral subarticular and lateral recess stenosis with probable encroachment on the traversing right L4 nerve root. Moderate right-sided and mild left-sided neural foraminal stenosis is noted. Cystic changes are s een within the spinous processes adjacent to the interspinous ligamen t with T2 hyperintensity within the interspinous ligament space, suggesting Baastrup's disease. L2-L3: Disc bulging is noted with a superimposed right-sided foraminal/extraforam inal disc protrusion, with mild flattening of the ventral dural sac. Ligamentum flavum thickening is noted with interspinous ligamen t degeneration with mild left and moderate right-sided facet claire int arthropathy. No significant central canal stenosis. Mild narro wing of the right subarticular recess noted without neural impingement. Moderate right-sided neural foraminal stenosis noted without neural impingement. L1-L2: Mild retrolisthesis noted with disc bulging and mild flattening of the dural sac. Mi nor facet joint arthropathy noted without canal stenosis. Mild elke inal narrowing noted on the right. PARAVERTEBRAL AND INCLUDED EXTRASPINAL SOFT TISSUES: The paravertebral soft tissues appear unremarkable. There are multiple simple-appearing left renal parapelvi c cysts which are partially included in the yhmjq-ty-lfkx. Limit ed evaluation. No specific follow up recommended based on the current ACR Best Practice Guidelines. M R/MR lumbar spine wo con IMPRESSION: 1. Lumbar levoscolio sis, with grade 1 degenerative spondylolisthesis at L3-L4 and L4-L5 and mild retrolisthesis at L1-L2. 2. Multilevel DDD an d spondylosis, with multilevel disc bulging and right lateral disc herniation at L2-L3 with posterior element hypertrophic degenerative changes and interspinous ligament degeneration as deta iled by level above. 3. Ioni-go-psdgzspx central spinal canal stenosis at L3-L4 with crowding of the intradural nerve roots and bilateral subarticular lateral recess steno sis, right more than left, with probable encroachment on the traversing right L4 nerve root. 4. Left subarticular recess stenosis at L4-L5 with slight encroachment on the traversing le ft L5 nerve root. 5. Multilevel bilate ral facet joint arthropathy and interspinous ligament degeneration. 6. Findings suggesti ng Baastrup's disease at the L3-L4 level. 7. Multilevel predominately tevq-mc-zvarqgch degrees of neural foraminal stenosis, most apparent on the right at L3-L4 and L2-L3. 8. Transitional lumbosacral anatomy. The L5 vertebral body is partially sacralized on the right. Electronically sabi d by: Allen Siegel MD 11/01/2024 03:52 PM [facility] [place] Dictated By: MOISES SIEGEL MD Signed By: <Electronically signed by ALLEN SIEGEL MD in OV> 11/01/24 1552 DD/ 1030 TD/TT: 09/13/24 1100 Talent Acquisition Project Manager: Complete Blood Count Auto Di ff (Not yet reviewed by provider) Interpretation: Performing Lab:[facility], [address] [place] [id number] Notes/Report: White Blood Count 5.0 4.8-10.8 X10*3/uL Red Blood Count 4.84 4.20-5.50 X10*6/uL Hemoglobin 14.7 12.0-16.0 g/dl Hematocrit 46.2 37.0-47.0 % Mean Corpuscular Volume 95.5 80.0-98.0 fL Mean Corpuscular Hemoglobin 30.4 27.0-33.0 pg Mean Corpuscular HGB Conc 31.8 31.0-35.0 g/dl Red Cell Distribution Width 13.2 11.0-16.0 % Platelet Count 300 160-400 X10*3/uL Mean Platelet Volume 10.1 9.4-12.3 fL Neutrophils Percent Auto 49.0 45-73 % Imm Gran Pct Auto 0.4 0.0-0.4 % Lymphocytes Percent Auto 38.6 20-40 % Monocytes Percent Auto 7.8 2-11 % Eosinophils Percent Auto 3.6 0-4 % Basophils Percent Auto 0.6 0-2 % NRBC Pct Auto 0.0 0.0-0.2 /100WBC Neutrophils Absolute Auto 2.4 2.0-8.3 x10*3/u L Imm Gran Abs Auto 0.02 0.00-0.03 X10*3/uL Lymphocytes Absolute Auto 1.9 1.2-4.9 X10*3/u L Monocytes Absolute Auto 0.4 0.1-1.2 X10*3/uL Eosinophils Absolute Auto 0.2 0.0-0.4 X10*3/u L Basophils Absolute Auto 0.0 0.0-0.2 X10*3/uL NRBC Abs Auto 0.000 0.0-0.012 X10*3/uL Comprehensive [place]. Panel Fa st (Not yet reviewed by provider) Interpretation: Performing Lab:[facility], [address] [place] [phone] Notes/Report: Sodium 143 135-145 mmol/L Potassium 4.1 3.3-5.1 mmol/L Chloride 109 96-108 mmol/L Carbon Dioxide 28 22-29 mmol/L Anion Gap 10 12-20 Blood Urea Nitrogen 21 9-16 mg/dL Creatinine 0.80 0.5-1.4 mg/dL Estimated Glomerular Filt Rate > 60 Chronic Kidney Disease: Estimated GFR < 60 mL/min/1.73m2 Severe Kidney Disease: Estimated GFR < 15 mL/min/1.73m2 Glucose Fasting 94 60-99 mg/dL Calcium 9.2 8.4-10.2 mg/dL Bilirubin Total 0.5 0.0-1.0 mg/dL Aspartate Amino Transferase 23 5-31 U/L Alanine Aminotransferase 23 0-31 U/L Total Protein 6.8 6.5-8.0 g/dL Albumin Level 4.3 3.5-5.0 g/dL Alkaline Phosphatase 83 39-117 U/L Lipid Panel (Not yet reviewe d by provider) Interpretation: Performing Lab:[address] [id number] Notes/Report: Triglycerides 109 <150 mg/dL Desirable Triglyceride: less than 150 mg/dL Borderline High Triglyceride 150-199 mg/dL High Triglyceride: 200-499 mg/dL Very High Triglyceride: greater than or equal to 5OO mg/dL Cholesterol 185 <200 mg/dL Desirable Cholesterol: less than 200 mg/dL Borderline High Cholesterol: 200-239 mg/dL High Cholesterol: greater than 239 mg/dL LDL Cholesterol Calculated 103 <100 mg/dL Desirable LDL: less than 100 mg/dL Near Optimal/Above Optimal LDL: 110-129 mg/dL Borderline High LDL: 130-159 mg/dL High LDL: 160-189 mg/dL Very High LDL: greater than or equal to 190 mg/dL HDL Cholesterol 61 >40 mg/dL Desirable HDL: greater than 40 mg/dL Note: This HDL assay may give artificially low results in patients with liver disease. Microalbumin, Random (Not ye t reviewed by provider) Interpretation: Performing Lab:[address] [id number] Notes/Report: Creatinine Urine 121.04 Microalbumin Urine 8.0 Microalbum/Creatinine Ratio Ur 6.6 <30 ug/mg cr Albumin/Creatinine Ratio Reference Ranges: Normal: < 30 ug/mg creatinine Microalbuminuria: 30 - 300 ug/mg creatinine Clinical Albuminuria: > 300 ug/mg creatinine Hemoglobin A1c (Not yet revi ewed by provider) Interpretation: Performing Lab:[address] [id number] Notes/Report: Hemoglobin A1c % 5.3 <6.0 % Hemoglobin A1C Reference Range Adults: 4.8 - 6.0 % Non diabetic: < 6.0 % Goal: < 7.0 % Additional Action Suggested: > 8.0 % Note: Hemoglobin A1c results are invalid for patients with abnormal amounts of HbF. Blood transfusions may impact the HbA1c concentration in the patient sample. Estimated Average Glucose 105 eAG = Estimated average glucose which is %A1C expressed as average glucose, using the formula of the N7F-Otukigp Average Glucose study (ADAG), Diabetes Care, Vol.31,#8, 2007 UA ClnCatch+Micro w/rflx Cul t (Not yet reviewed by provider) Interpretation: Performing Lab:[facility], [address] [place] [phone] Notes/Report: Urine, Clean Catch Color Urine Yellow Appearance Urine Clear PH 6.5 5.0-9.0 Glucose Urine UA Negative Negative mg/dL Urine Blood Negative Negative Specific [place] - Urine 1.025 1.005-1.025 Urine Protein Negative Neg-Trace mg/dL Urine Ketones Negative Negative mg/dL Nitrite Urine Negative Negative Leukocyte Esterase Urine Moderate (2+) Negative RBC Urine 0-2 0-2 /HPF WBC Urine 11-20 0-5 /HPF Squamous Epithelial Cell Urine 0-2 0-2 /HPF Bacteria Urine None Seen None Seen Hyaline Casts Urine 0-2 0-2 /LPF Reason For Referral Reason sciatica of right si de Diagnosis 1 Sciatica of right si de (M54.31) Referral Organization Esa Fleming MD Referring Provider First Name Esa Referring Provider Last Name Bernadette Referring Provider Speciality Internal M edicine Referred Provider [facility] Referred Provider Specialty Physical Med icine General Notes Tameka Cisneros 12:01:27 PM EDT > info faxed , Tameka Cisneros 07/16/2024 03:11:13 PM EDT > left message for patient to call Matt Patti A 07/19/2024 02:06:01 PM EDT > LO CALLED TO VERIFY HER APPT IS 07/22/[address] RODRIGUEZ NOTES Matt DIETZ Patti A 08/05/2024 01:12:48 PM EDT > Referral Priority Routine Referral Appointment Date 07/22/2024 Medications Medication SIG (Take, Route, Fr equency, Duration) Notes Start Date End Date Status Ibuprofen 800 MG 1 tablet Orally two times a day for 14 days 06/23/2014 Not-Taking Immunizations Vaccine Route Administration Date Status Comme nts Flu Vaccine Unknown 07/27/2017 Administered at work Fluarix Quadrivalent Unknown 08/05/2018 Administered At work Fluarix Quadrivalent Unknown 07/26/2019 Administered at work PPSV23 (Pnemovax) IM Intramuscular 11/23/2019 Administered Fluarix Quadrivalent Unknown 07/20/2020 Administered CV S SARS-COV-2 Pfizer Unknown 08/31/2021 Administered [place] SARS-COV-2 Pfizer Unknown 01/13/2021 Administered SARS-COV-2 Pfizer Unknown 02/03/2021 Administered Fluarix Quadrivalent Unknown 07/31/2021 Administered Fluarix Quadrivalent - 150 IM Intramuscular 07/06/2024 Administered PPSV23 (Pnemovax) Unknown 08/19/2017 Refused Social History Tobacco Use: Social History Observation Description Date Details (start date - stop date) Never Smoker NA - NA Tobacco Use/Smoking Question Answer Notes Patient is a nonsmoker Additional Findings: Tobacco Non-User Cu rrent non-smoker, currently using no form of tobacco Alcohol Screen Question Answer Notes Did you have a drink contain ing alcohol in the past year? Yes How often did you have a dri nk containing alcohol in the past year? Monthly or less (1 point) How many drinks did you have on a typical day when you were drinking in the past year? 1 or 2 drinks (0 point) How often did you have 6 or more drinks on one occasion in the past year? Never (0 point) Points 1 Interpretation Negative Problems Problem Type SNOMED Code ICD Code Onset Dates Problem Status W/U Status Risk Notes Problem 07286969 Age-related osteoporosis without current pathological fracture (M81.0) Active confirmed Problem 5304571 Prediabetes (R73.09) Active confirmed Problem 385962607415204 Sciatica of right side (M54.31) Active confirmed Problem 37316032 Hip arthritis (M16.10) Active confirmed Problem 479561984 Obesity due to excess calories, unspecified classification, unspecified whether serious comorbidity present (E66.09) Active confirmed Problem 0827210092085929 Arthritis of left knee (M17.12) Active confirmed Vital Signs Blood pressure diastolic 64 mm Hg 11/11/2024 cherelle ght is down 3 pounds since 08-09-24 Height 61 in 11/11/2024 weight is down 3 pounds since 08-09-24 Blood pressure systolic 102 mm Hg 11/11/2024 weig ht is down 3 pounds since 08-09-24 Weight 160 lbs 11/11/2024 weight is down 3 pounds since 08-09-24 BMI 30.23 kg/m2 11/11/2024 weight is down 3 pounds since 08-09-24 Encounters Encounter Location Date Provider Diagnosis Esa Fleming MD [address] [place] [address] Drive [address] [place] [id number] 01/27/2025 Esa Fleming Blood tests for routine general physical examination Z00.00 and Prediabetes R73.09 Esa Fleming MD [address] [place] [id number] 02/03/2024 Esa Fleming Prediabetes R73.09 ; Encounter for general adult medical examination without abnormal findings Z00.00 ; Obesity due to excess calories, unspecified classification, unspecified whether serious comorbidity present E66.09 ; Arthritis of left knee M17.12 and Hip arthritis M16.10 Esa Fleming MD [address] [place] [id number] 07/06/2024 Esa Fleming Sciatica of right side M54.31 ; Fungal infection B49 and Encounter for immunization Z23 Esa Fleming MD [address] [place] [address] [address] [id number] 08/09/2024 Esa Fleming Sciatica of right side M54.31 Esa Fleming MD [address] [place] [address] [id number] 11/11/2024 Esa Fleming Lumbar back pain M54.50 Esa Fleming MD [address] [place] [address] [id number] 07/09/2024 Esa Fleming Assessments Encounter Date Diagnosis (ICD Code) Assessment Notes Treatment Notes Treatment Clinical Notes Section Notes 01/27/2025 Blood tests for routine general physical examination (ICD-10 - Z00.00) z 02/03/2024 Prediabetes (ICD-10 - R73.09) doing great on no meds 02/03/2024 Encounter for general adult medical examination without abnormal findings (ICD-10 - Z00.00) Labs reviewed and discussed with patient 07/06/2024 Sciatica of right side (ICD-10 - M54.31) referral to [facility] in [place] / order faxed to [facility] 07/06/2024 Fungal infection (ICD-10 - B49) use lamisil 08/09/2024 Sciatica of right side (ICD-10 - M54.31) awaiting [facility]/ long discussion concerning disc treatment and whether and when is needed, Total time spent on the date of the encounter is 35 minutes including both face to face time spent and time spent reviewing documentation, and counseling the patient. 11/11/2024 Lumbar back pain (ICD-10 - M54.50) is going to continue exercise and is getting better 01/27/2025 Prediabetes (ICD-10 - R73.09) z 02/03/2024 Obesity due to excess calories, unspecified classification, unspecified whether serious comorbidity present (ICD-10 - E66.09) doing well on diet. 07/06/2024 Encounter for immunization (ICD-10 - Z23) 02/03/2024 Arthritis of left knee (ICD-10 - M17.12) 02/03/2024 Hip arthritis (ICD-10 - M16.10) Plan Of Treatment Pending Test Test Name Order Date Electrocardiogram (EKG) 10/29/2018 MAMMOGRAM DIGITAL BILATERAL SCREEN 08/26 MAMMOGRAM DIGITAL BILATERAL SCREEN 11/21 Complete Blood Count Auto Diff Comprehensive [place]. Panel Fast Lipid Panel 01/27/2025 Microalbumin, Random 01/27/2025 MR lumbar spine wo con 07/06/2024 Hemoglobin A1c 01/27/2025 UA ClnCatch+Micro w/rflx Cult 01/27/2025 Next Appt Details Provider Name:Esa trimble, 02/03/2025 09:30:00 AM, [address], [address], [place], [place], [phone], Insurance Providers Payer Name Payer Address Payer Phone Subscriber Number Group Number Insured Name Patient Relationship to Insured Coverage Start Date Coverage End Date [employer] [facility] [address] [place] [phone] [id number] Lo Schultz Self - patient is the insured Medical (General) History Medical History History ICD Code colonoscopy 2007 due in 10 y ears, Was due in 2017; Colonoscopy done 04/16/19by /Dr. Beavers hyperplastic polyps [facility] - due in 05/2014
--- OUTSIDE RECORDS SUMMARY | 2025-01-27 11:16 | XMS_ITS ---
Author Organization Esa Fleming MD Address [address] [place] [phone] Care Team Providers Care Community Development Manager Name Role Phone Esa Fleming Primary Care Provider REASON FOR VISIT 1 week back pain MRI Medications Medication SIG (Take, Route, Fr equency, Duration) Notes Start Date End Date Status Ibuprofen 800 MG 1 tablet Orally two times a day for 14 days 06/23/2014 Not-Taking Vital Signs Blood pressure systolic 102 mm Hg 11/11/19 25 Blood pressure diastolic 64 mm Hg 025 Height 61 in 11/11/2024 Weight 160 lbs 11/11/2024 BMI 30.23 kg/m2 11/11/2024 weight is down 3 pounds [facility] 08-09-24 Encounters Encounter Location Date Provider Diagnosis Esa Fleming MD [address] [place] [id number] 11/11/2024 Esa Fleming Lumbar back pain M54.50 Assessments Encounter Date Diagnosis (ICD Code) Assessment Notes Treatment Notes Treatment Clinical Notes Section Notes 11/11/2024 Lumbar back pain (ICD-10 - M54.50) is going to continue exercise and is getting better Plan Of Treatment Treatment Notes Assessment Notes Lumbar back pain is going to continue exercise and is getting better Next Appt Details Provider Name:Esa Suleiman Evans ier, 02/03/2025 09:30:00 AM, [address], [address], [place], [place], [phone], Progress Notes * FRANKLo SPRING ADOB:1954 (69 yo F)Acc No.[id number]:11/11/2024 Patient:?Lo HURLEY A Provider:?Esa Fleming MD :1955???Age:69 Y???Sex:Female D ate:11/11/2024 Address:[address] [place], [place] [phone] Subjective: * Chief Complaints: * ???1 week back pain MRI * HPI: ???Symptom(s):?patient is a 69 yo female here for one week follow up of back pain/ is doing stretches at night and is doing much better. no pain in leg except occasional. never fell. * ROS:?General/Constitutional:?Denies?Chills.?Denies?Fatigue.?Denies?Fever.?Denies?Headache.?ENT:?Patient denies?decreased sense of smell, any loss of taste, sore throat.?Denies?Sore throat.?Respiratory:?Denies?Cough.?Denies?Shortness of breath at rest.?Denies?Shortness of breath with exertion.?Gastrointestinal:?Denies?Diarrhea.?Denies?Nausea.?Musculoskeletal:?Patient denies?muscle aches.?Peripheral Vascular:?Patient denies?red and blue toes.? * Medical History:? * Surgical History:? * Hospitalization/Major Diagno stic Procedure:? * Medications:?Not-Taking/PRNI buprofen 800 MG Tablet 1 tablet Orally two times a day Medication List reviewed and reconciled with the patientNot-Taking/PRN Ibuprofen 800 MG Tablet 1 tablet Orally two times a day Medication List reviewed and reconciled with the patient Objective: * Vitals:?Ht: 61, Wt: 160, BMI :30.23, BP:102/64, Wt-k.58. weight is down 3 pounds since 08-09-24. * Examination: ???General Examination: ?GENERAL APPEARANCE:?alert, well hydrated, in no distress.?HEAD:?normocephalic.?SKIN:?good turgor.?HEART:?no murmurs, rubs, gallops, regular rate and rhythm.?LUNGS:?no wheezes, rales, rhonchi.?NEUROLOGIC:?normal strength and dtr's.? Assessment: * Assessment: 1.?Lumbar back pain - M54.50 (Primary)??? Plan: * Treatment: * Procedure Codes:? * * Sign off status: Completed true * Provider:?Esa Fleming MD Date:?0 11/11/2024 Generated for Dilipi daniel/Emanuel/eTransmitting on:?01/27/2025 11:16 AM EDT History and Physical Notes * HPI (History of Present Illness) Category Sub-Category Detail Notes Category Not es Symptom(s) patient is a 69 yo female here for one week follow up of back pain/ is doing stretches at night and is doing much better. no pain in leg except occasional. never fell. Examination Category Sub-Category Detail Notes Category Not es General Examination GENERAL APPEARANCE: alert, w ell hydrated, in no distress HEAD: normocephalic HEART: no murmurs, rubs, ga llops, regular rate and rhythm LUNGS: no wheezes, rales, r honchi NEUROLOGIC: normal strength and dtr's SKIN: good turgor
--- OUTSIDE RECORDS SUMMARY | 2025-01-27 11:16 | XMS_ITS ---
Author Organization Esa Fleming MD Address [address] [place] [phone] Care Team Providers Care Clinical Secretary Name Role Phone Esa Fleming Primary Care Provider [phone] Results Component Value Reference Range Notes Complete Blood Count Auto Di ff (Not yet reviewed by provider) Interpretation: Performing Lab:[facility], [address] [place] [phone] Notes/Report: White Blood Count 5.0 4.8-10.8 X10*3/uL [...] NRBC Abs Auto 0.000 0.0-0.012 X10*3/uL Comprehensive [place]. Panel Fa st (Not yet reviewed by provider) Interpretation: Performing Lab:[facility], [address] [place] [phone] Notes/Report: Sodium 143 135-145 mmol/L Potassium 4.1 [...] 83 39-117 U/L Lipid Panel (Not yet review ed by provider) Interpretation: Performing Lab:[address] [phone] Notes/Report: Triglycerides 109 <150 mg/dL Desirable Triglyceride: [...] ye t reviewed by provider) Interpretation: Performing Lab:[address] [phone] Notes/Report: Creatinine Urine 121.04 Microalbumin Urine 8.0 Microalbum/Creatinine Ratio Ur 6.6 <30 ug/mg cr Albumin/Creatinine Ratio Reference Ranges: Normal: < 30 ug/mg creatinine Microalbuminuria: 30 - 300 ug/mg creatinine Clinical Albuminuria: > 300 ug/mg creatinine Hemoglobin A1c (Not yet revi ewed by provider) Interpretation: Performing Lab:[address] [phone] Notes/Report: Hemoglobin A1c % 5.3 <6.0 % [...] average glucose, using the formula of the X4S-Jndqbkz Average Glucose study (ADAG), Diabetes Care, Vol.31,#8, 2007 UA ClnCatch+Micro w/rflx Cul t (Not yet reviewed by provider) Interpretation: Performing Lab:[facility], [facility] [place] [phone] Notes/Report: Urine, Clean Catch Color Urine Yellow Appearance Urine Clear PH 6.5 5.0-9.0 Glucose Urine UA Negative Negative mg/dL Urine Blood Negative Negative Specific [place] - Urine 1.025 1.005-1.025 Urine Protein Negative Neg-Trace mg/dL Urine Ketones Negative Negative mg/dL Nitrite Urine Negative Negative Leukocyte Esterase Urine Moderate (2+) Negative RBC Urine 0-2 0-2 /HPF WBC Urine 11-20 0-5 /HPF Squamous Epithelial Cell Urine 0-2 0-2 /HPF Bacteria Urine None Seen None Seen Hyaline Casts Urine 0-2 0-2 /LPF REASON FOR VISIT yearly fasting labs Encounters Encounter Location Date Provider Diagnosis Esa Fleming MD [address] [place] [address] [place] [phone] 01/27/2025 Esa Fleming Blood tests for routine general physical examination Z00.00 and Prediabetes R73.09 Assessments Encounter Date Diagnosis (ICD Code) Assessment Notes Treatment Notes Treatment Clinical Notes Section Notes 01/27/2025 Blood tests for routine general physical examination (ICD-10 - Z00.00) z 01/27/2025 Prediabetes (ICD-10 - R73.09) z Plan Of Treatment Pending Test Test Name Order Date Complete Blood Count Auto Diff 5 Comprehensive [place]. Panel Fast 5 Lipid Panel 01/27/2025 Microalbumin, Random 01/27/2025 Hemoglobin A1c 01/27/2025 UA ClnCatch+Micro w/rflx Cult 01/27/2025 Next Appt Details Provider Name:Esa Evans ier, 02/03/2025 09:30:00 AM, [address] [place] [address], Suite [facility], [place], [place], [phone], Progress Notes * Lo HIDALGO ADOB:1954 (69 yo F)Acc No.[id number]:01/27/2025 Progress Note Patient:?FRANKIVETLo RAMSEY Provider:?Esa Fleming MD :1955???Age:69 Y???Sex:Female D ate:01/27/2025 Address:[address] [place] [id number] Subjective: * Chief Complaints: * ???1. Yearly fasting labs. * Medical History:? Objective: * Vitals:? Assessment: * Assessment: 1.?Blood tests for routine g eneral physical examination - Z00.00 (Primary)???2.?Prediabetes - R73.09??? z Plan: * Treatment: 2.?Prediabetes?LAB: Complete Blood Count Auto Diff (Collection Date & Time - 01/27/2025 07:30 AM) ?LAB: Comprehensive [place]. Panel Fast (Collection Date & Time - 01/27/2025 07:30 AM) ?LAB: Lipid Panel (Collection Date & Time - 01/27/2025 07:30 AM) ?LAB: Microalbumin, Random (Collection Date & Time - 01/27/2025 07:30 AM) ?LAB: Hemoglobin A1c (Collection Date & Time - 01/27/2025 07:30 AM) ?LAB: UA ClnCatch+Micro w/rflx Cult (Collection Date & Time - 01/27/2025 07:30 AM) * Procedure Codes:?59713 VENIP UNCT, ROUTINE* * * The named appointment provid er may or may not be the originator of this progress note, and it is not deemed complete until electronically signed by the appointment provider. Sign off status: Pending * Provider:?Esa Fleming MD Date:?0 01/27/2025 Generated for Jessa sanchez/Emanuel/eTransmitting on:?01/27/2025 11:15 AM EDT
== END 2025-01-27 09:52 | disposition home or self-care (01) ==
LOC: HO.LNP 09:51
PROVIDERS: Visit Provider Internal Medicine
DX: Z00.00 Encounter for general adult medical examination without abnormal findings (principal); R73.03 Prediabetes; Z13.6 Encounter for screening for cardiovascular disorders
CPT/HCPCS: 80053; 80061; 81001; 82043; 82570; 83036; 85025; 87086

== ENCOUNTER 2025-02-09 11:10 | Outpatient (REF) | payer MEDICARE, SELFPAY ==
--- OUTSIDE RECORDS SUMMARY | 2025-02-09 13:30 | XMS_ITS | Patient Health Record ---
Author Organization Esa Fleming MD Address [address] [place] [phone] Care Team Providers Care Automotive Fuel Systems Converter Name Role Phone Esa Fleming Primary Care Provider Allergies Allergen (clinical drug ingredient) Drug/Non Drug Allergy documented on EMR Reaction Allergy Type Onset Date Status Codeine Phosphate rash Drug Allergy Active Results Component Value Reference Range Notes MR lumbar spine wo con Reviewed date:11/12/2024 03:11:52 PM Interpretation:see back 11-11-2024 Performing Lab: Notes/Report: [address] [address] Magnetic Resonance Report Signed Patient: Lo Hidalgo MR#: [id number] 642 : 1955 Acct:[id number] Age/Sex: 69 / F ADM Date: 09/13/24 Loc: HO.MRI Attending Dr: Antolin Peterson DO Ordering Physician: Antolin Peterson DO Date of Service: 09/13/24 Procedure(s): MR lumbar spine wo con Accession Number(s): [id number] cc: Esa Fleming MD; Antolin Peterson DO EXAMINATION: MR LUMBAR SPINE WITHOUT CONTRAST CLINICAL INFORMATION: 69-year-old with radiculopathy. Self-reported right leg pain and weakness. COMPARISON: None available. TECHNIQUE: MRI of the lumbar spine was obtained using routine sequences without contrast. FINDINGS: CORONAL ALIGNMENT: Moderate mid lumbar levoscoliosis, convex to the left at L2-L3 noted with mild bvfbc-tt-eixc lateral listhesis at L3-L4 and mild kkud-lt-cabql lateral listhesis at L2-L3. SAGITTAL ALIGNMENT: There is 2 mm of 5 grade 1 degenerative spondylolisthesis at L4-L5. There is 4 mm of grade 1 degenerative spondylolisthesis at L3-L4. There is okud-sa-jeacygaw hyperlordosis centered at L2-L3. Mild retrolisthesis noted at L1-L2. LUMBOSACRAL JUNCTION: Transitional lumbosacral anatomy with lowest lumbar-like segment labeled as L5, which is partially sacralized on the right. VERTEBRAL BODIES: Vertebral body heights are well maintained. DISC SPACES AND ENDPLATES: Tclxmqqj-xq-vopnvr intervertebral disc space height loss is noted asymmetric to the right at L3-L4 and L2-L3 and lxudzfvi-ba-kvpets diffuse disc space height loss at L1-L2 with moderate disc volume loss asymmetric to the left at L4-L5 with multilevel intradiscal degenerative signal changes and mild degrees of spondylosis at these levels. Central Schmorl's nodes are noted at L2-L3 and L1-L2. Partially imaged lvnsoqxq-jt-zdmqxg disc space height loss with disc degenerative [...] is noted slightly asymmetric to the left. Jxdtzdvt-vk-rlsgtw left-sided and csyw-iv-xccjfgen right-sided facet joint arthropathy noted without central canal stenosis. Narrowing of the left subarticular and lateral recess is noted with slight encroachment on the traversing left L5 nerve root. Houm-em-uomrpbxp left-sided neural foraminal stenosis is noted without neural impingement. L3-L4: Unroofing of the posterior disc margin is noted with superimposed disc bulging, asymmetric to the right, with flattening of the ventral dural sac. Ligamentum flavum thickening and probable partial calcification of the ligamentum flavum on the right with interspinous ligament degeneration is noted with xcwvneqn-oo-wybepp bilateral facet joint arthropathy. Bafo-el-trnlprda central spinal canal stenosis is noted with [...] cysts which are partially included in the uouwz-rk-ebus. Limited evaluation. No specific follow up recommended [...] degeneration as detailed by level above. 3. Pmcn-vj-rwvpdhiv central spinal canal stenosis at L3-L4 with [...] at the L3-L4 level. 7. Multilevel predominately fcnp-qc-rctapqoq degrees of neural foraminal stenosis, most apparent on the right at L3-L4 and L2-L3. 8. Transitional lumbosacral anatomy. The L5 vertebral body is partially sacralized on the right. Electronically signed by: Allen Siegel MD 11/01/2024 03:52 PM [facility] Dictated By: ALLEN SIEGEL MD Signed By: <Electronically signed by ALLEN SIEGEL MD in OV> 11/01/24 1552 DD/ 1030 TD/TT: 09/13/24 1100 Report Programmer: [place] [id number] Magnetic Resonance Report Signed Patient: Rea Hidalgo MR#: [id number] [id number] : 1955 Acct:[id number] Age/Sex: 69 / F ADM Date: 09/13/24 Loc: HO.MRI Attending Dr: Antolin Peterson DO Ordering Physician: Antolin Peterson DO Date of Service: 09/13/24 Procedure(s): MR lum bar spine wo con Accession Number(s): [id number] cc: Esa Fleming MD; Antolin Peterson DO EXAMINATION: MR LUMBAR SPINE WITH OUT CONTRAST CLINICAL INFORMATION: 69-year-old with radiculopathy. Self-reported right leg pain and weakness. COMPARISON: None available. TECHNIQUE: MRI of the lumbar sp ine was obtained using routine sequences without contrast. FINDINGS: CORONAL ALIGNMENT: Moderate mid lumbar levoscoliosis, convex to the left at L2-L3 noted with mild qqvwj-ss-wjiv lateral listhesis at L3-L4 and mild left-to-rig ht lateral listhesis at L2-L3. SAGITTAL ALIGNMENT: There is 2 mm of 5 grade 1 degenerative spondylolisthesis at L4-L5. There is 4 mm of grade 1 degenerative spondylolisthesis at L3-L4. There is xpmg-du-kzpnbkix hyperlordosis centered at L2-L3. M ild retrolisthesis noted at L1-L2. LUMBOSACRAL JUNCTION : Transitional lumbosacral anatomy with lowest lumbar-like segment labeled as L5, which is partially sacralized on the right. VERTEBRAL BODIES: Vertebral body heights are well maintained. DISC SPACES AND ENDPLATES: Snglfome-tl-xlsceh intervertebral disc space height loss is noted asymmetric to the right at L3-L4 and L2-L3 and fzauegti-nr-vceggl diffuse disc space height loss at L1-L2 with moderate disc volume loss asymmetric to the left at L4-L5 with multilevel intradisc al degenerative signal changes and mild degrees of spondylosis at these levels. Central Schmorl's nodes are noted at L2-L3 and L1-L2. Partially imaged jnmtjywh-ej-keplot disc space height loss with disc degenerati [...] is noted slightly asymmetric to the left. Xjhvzyji-nq-aujwid left-sided and qqfm-dt-kgcnlteo right-sided facet joint arthropathy no petty without central canal stenosis. Narrowing of the left subarticula r and lateral recess is noted with slight encroachment on the traversing left L5 nerve root. Plfj-gm-krklsocj left-sided neural foraminal stenosis is noted without neural impingement. L3-L4: Unroofing of the posterior disc margin is noted with superimposed disc bulging, asymmetric to the right, with flattening of the ventral dural sa c. Ligamentum flavum thickening and probable partial calcificatio n of the ligamentum flavum on the right with interspinous ligamen t degeneration is noted with pgtthans-of-cghnli bilateral facet join t arthropathy. Jjjt-md-gxyufnyi central spinal canal stenosis is no petty [...] cysts which are partially included in the zcseq-dw-nacy. Limit ed evaluation. No specific follow up [...] as deta iled by level above. 3. Fnos-se-zqhsmqaa central spinal canal stenosis at L3-L4 with [...] at the L3-L4 level. 7. Multilevel predominately iqff-yq-jkyijrgh degrees of neural foraminal stenosis, most apparent on the right at L3-L4 and L2-L3. 8. Transitional lumbosacral anatomy. The L5 vertebral body is partially sacralized on the right. Electronically sabi d by: Allen Siegel MD 11/01/2024 03:52 PM [facility] Dictated By: MOISES SIEGEL MD Signed By: <Electronically signed by ALLEN SIEGEL MD in OV> 11/01/24 1552 DD/ 1030 TD/TT: 09/13/24 1100 Report Programmer: Urine Culture Reviewed date:01/28/2025 09:03:34 AM Interpretation: Performing Lab:[facility], [address] [place] [phone] Notes/Report: Urine Culture No growth. Complete Blood Count Auto Di ff Reviewed date:01/27/2025 06:47:51 PM Interpretation: Performing Lab:[facility], [address] [place] [phone] Notes/Report: White Blood Count 5.0 4.8-10.8 X10*3/uL [...] NRBC Abs Auto 0.000 0.0-0.012 X10*3/uL Comprehensive [place]. Panel Fa st Reviewed date:01/27/2025 06:47:16 PM Interpretation: Performing Lab:[facility], [address] [place] [phone] Notes/Report: Sodium 143 135-145 mmol/L Potassium 4.1 [...] Alkaline Phosphatase 83 39-117 U/L Lipid Panel Reviewed date:01/27/2025 06:25:07 PM Interpretation: Performing Lab:[facility], [address] [place] [phone] Notes/Report: Triglycerides 109 <150 mg/dL Desirable Triglyceride: [...] in patients with liver disease. Microalbumin, Random Reviewed date:01/27/2025 06:24:50 PM Interpretation: Performing Lab:[facility], [address] [place] [phone] Notes/Report: Creatinine Urine 121.04 Microalbumin Urine 8.0 Microalbum/Creatinine Ratio Ur 6.6 <30 ug/mg cr Albumin/Creatinine Ratio Reference Ranges: Normal: < 30 ug/mg creatinine Microalbuminuria: 30 - 300 ug/mg creatinine Clinical Albuminuria: > 300 ug/mg creatinine Hemoglobin A1c Reviewed date:01/27/2025 06:24:40 PM Interpretation: Performing Lab:[facility], [address] [place] [phone] Notes/Report: Hemoglobin A1c % 5.3 <6.0 % [...] average glucose, using the formula of the N2Z-Tstqarm Average Glucose study (ADAG), Diabetes Care, Vol.31,#8, May. 2007 UA ClnCatch+Micro w/rflx Cul t Reviewed date:01/28/2025 09:06:06 AM Interpretation: Performing Lab:[facility], [address] [facility], [place] [address] Notes/Report: Urine, Clean Catch Color Urine Yellow Appearance Urine Clear PH 6.5 5.0-9.0 Glucose Urine UA Negative Negative mg/dL Urine Blood Negative Negative Specific [place] - Urine 1.025 1.005-1.025 Urine Protein Negative [...] 07/22/[address] RODRIGUEZ NOTES RECDMatt Patti A 08/05/2024 01:12:48 PM EDT > Referral Priority Routine Referral Appointment Date 07/22/2024 Medications Medication SIG (Take, Route, Frequency, Duration) Notes Start Date End Date Status Albuterol Sulfate HFA 108 (90 Base) MCG/ACT 1 puff as needed Inhalation every 4 hrs for 30 days 02/03/2025 Active Amoxicillin-Pot Clavulanate 875-125 MG 1 tablet Orally every 12 hrs for 7 days 02/03/2025 Active Ibuprofen 800 MG 1 tablet Orally two times a day for 14 days 06/23/2014 Not-Taki ng Immunizations Vaccine Route Administration Date Status Comme [...] Problem Status W/U Status Risk Notes Problem 98486288 Age-related osteoporosis without current pathological fracture (M81.0) Active confirmed Problem 6668069 Prediabetes (R73.09) Active confirmed Problem Asthma (968081810) Asthma (J45.909) Active confirmed Problem 244498431024059 Sciatica of right side (M54.31) Active confirmed Problem 49558413 Hip arthritis (M16.10) Active confirmed Problem 402568293 Obesity due to excess calories, unspecified classification, unspecified whether serious comorbidity present (E66.09) Active confirmed Problem 3710135960634038 Arthritis of left knee (M17.12) Active confirmed Vital Signs Blood pressure diastolic 70 mm Hg 02/03/2025 cherelle ght is up 6 pounds since 11-11-24 Height 61 in 02/03/2025 weight is up 6 pounds since 11-11-24 Blood pressure systolic 122 mm Hg 02/03/2025 weig ht is up 6 pounds since 11-11-24 Weight 166 lbs 02/03/2025 weight is up 6 pounds since 11-11-24 BMI 31.36 kg/m2 02/03/2025 weight is up 6 pounds since 11-11-24 Encounters Encounter Location Date Provider Diagnosis Esa Fleming MD [address] [place] [id number] 01/27/2025 Esa Fleming Blood tests for routine general physical examination Z00.00 and Prediabetes R73.09 Esa Fleming MD [address] [place] [address] Drive [address] [place] [id number] 07/06/2024 Esa Fleming Sciatica of right side M54.31 ; Fungal infection B49 and Encounter for immunization Z23 Esa Fleming MD [address] [place] [address] Drive [address] [place] [id number] 08/09/2024 Esa Fleming Sciatica of right side M54.31 Esa Fleming MD [address] [place] [id number] 11/11/2024 Esa Fleming Lumbar back pain M54.50 Esa Fleming MD [address] [place] [id number] 02/03/2025 Esa Fleming Adult general medica l examination Z00.00 ; Asthma J45.909 ; Otitis media H66.90 and Depression screening Z13.31 Esa Fleming MD [address] [place] [address] [id number] 07/09/2024 Esa Fleming Assessments Encounter Date Diagnosis (ICD Code) Assessment Notes Treatment Notes Treatment Clinical Notes Section Notes 01/27/2025 Blood tests for routine general physical examination (ICD-10 - Z00.00) z 07/06/2024 Sciatica of right side (ICD-10 - M54.31) referral to [facility] [place] / order faxed to [facility] 07/06/2024 Fungal [...] to continue exercise and is getting better 02/03/2025 Adult general medical examination (ICD-10 - Z00.00) labs reviewed and discussed with patient 02/03/2025 Asthma (ICD-10 - J45.909) patient verbalized understanding of medication and directions for use 01/27/2025 Prediabetes (ICD-10 - R73.09) z 07/06/2024 Encounter for immunization (ICD-10 - Z23) 02/03/2025 Otitis media (ICD-10 - H66.90) patient verbalized understanding of medication ad directions for use 02/03/2025 Depression screening (ICD-10 - Z13.31) negative screen Plan Of Treatment Pending Test Test Name Order Date Electrocardiogram (EKG) 10/29/2018 MAMMOGRAM DIGITAL BILATERAL SCREEN 08/26 MAMMOGRAM DIGITAL BILATERAL SCREEN 11/21 MR lumbar spine wo con 07/06/2024 Next Appt Details Provider Name:Esa trimble, 02/18/2025 09:00:00 AM, [address] [place] [address], [address], [phone], Provider Name:Esa trimble, 01/27/2026 07:00:00 AM, [address] [place] [address], [address], [phone], Provider Name:Esa trimble, 02/03/2026 08:30:00 AM, [address] [place] [address], [address], [phone], Insurance Providers Payer Name Payer Address Payer Phone Subscriber Number Group Number Insured Name Patient Relationship to Insured Coverage Start Date Coverage End Date [employer] [facility] [address] [place] [phone] [id number] Lo Schultz Self - patient is the insured Medical (General) History Medical History History ICD Code colonoscopy 2007 due in 10 y ears, Was due in 2017; Colonoscopy done 04/16/19by /Dr. Beavers hyperplastic polyps [facility] - due in 05/2014
--- OUTSIDE RECORDS SUMMARY | 2025-02-09 13:30 | XMS_ITS ---
Author Organization Esa Fleming MD Address [address] [place] [phone] Care Team Providers Care Thermoforming Machine Operator Name Role Phone Esa Fleming Primary Care Provider Results Component Value Reference Range Notes Complete Blood Count Auto Di ff Reviewed date:01/27/2025 06:47:51 PM Interpretation: Performing Lab:[facility], [address] [place] [phone] Notes/Report: White Blood Count 5.0 4.8-10.8 X10*3/uL [...] NRBC Abs Auto 0.000 0.0-0.012 X10*3/uL Comprehensive [place]. Panel Fa st Reviewed date:01/27/2025 06:47:16 PM Interpretation: Performing Lab:[facility], [address] [place] [phone] Notes/Report: Sodium 143 135-145 mmol/L Potassium 4.1 [...] Panel Reviewed date:01/27/2025 06:25:07 PM Interpretation: Performing Lab:[facility], [address] [place] [phone] Notes/Report: Triglycerides 109 <150 mg/dL Desirable Triglyceride: [...] Random Reviewed date:01/27/2025 06:24:50 PM Interpretation: Performing Lab:[facility], [address] [place] [phone] Notes/Report: Creatinine Urine 121.04 Microalbumin Urine 8.0 Microalbum/Creatinine Ratio Ur 6.6 <30 ug/mg cr Albumin/Creatinine Ratio Reference Ranges: Normal: < 30 ug/mg creatinine Microalbuminuria: 30 - 300 ug/mg creatinine Clinical Albuminuria: > 300 ug/mg creatinine Hemoglobin A1c Reviewed date:01/27/2025 06:24:40 PM Interpretation: Performing Lab:[facility], [address] [place] [phone] Notes/Report: Hemoglobin A1c % 5.3 <6.0 % [...] average glucose, using the formula of the Z8A-Byzvvpw Average Glucose study (ADAG), Diabetes Care, Vol.31,#8, May. 2007 UA ClnCatch+Micro w/rflx Cul t Reviewed date:01/28/2025 09:06:06 AM Interpretation: Performing Lab:[facility], [address] [place] [phone] Notes/Report: Urine, Clean Catch Color Urine Yellow Appearance Urine Clear PH 6.5 5.0-9.0 Glucose Urine UA Negative Negative mg/dL Urine Blood Negative Negative Specific [place] - Urine 1.025 1.005-1.025 Urine Protein Negative [...] Location Date Provider Diagnosis Esa Fleming MD [address] [place] [phone] 01/27/2025 Esa Fleming Blood tests for routine general physical examination Z00.00 and Prediabetes R73.09 Assessments Encounter Date Diagnosis (ICD Code) Assessment Notes Treatment Notes Treatment Clinical Notes Section Notes 01/27/2025 Blood tests for routine general physical examination (ICD-10 - Z00.00) z 01/27/2025 Prediabetes (ICD-10 - R73.09) z Plan Of Treatment Next Appt Details Provider Name:Esa trimble, 02/18/2025 09:00:00 AM, [address] [place] [address], [address], [phone], Provider Name:Esa trimble, 01/27/2026 07:00:00 AM, [address] [place] [address], [address], [phone], Provider Name:Esa trimble, 02/03/2026 08:30:00 AM, [address] [place] [address], [address], [phone], Progress Notes * Lo HIDALGO ADOB:1954 (69 yo F)Acc No.[id number]:01/27/2025 Progress Note Patient:Lo VALIENTE Provider:?Esa Fleming MD :1955???Age:69 Y???Sex:Female D ate:01/27/2025 Address:[address] [place], [place] [phone] Subjective: * Chief Complaints: * ???1. Yearly fasting labs. * Medical History:? Objective: * Vitals:? Assessment: * Assessment: 1.?Blood tests for routine g eneral physical examination - Z00.00 (Primary)???2.?Prediabetes - R73.09??? z Plan: * Treatment: 2.?Prediabetes?LAB: Complete Blood Count Auto Diff (Collection Date & Time - 01/27/2025 07:30 AM) ?LAB: Comprehensive [place]. Panel Fast (Collection Date & Time - 01/27/2025 07:30 AM) ?LAB: Lipid Panel (Collection Date & Time - 01/27/2025 07:30 AM) ?LAB: Microalbumin, Random (Collection Date & Time - 01/27/2025 07:30 AM) ?LAB: Hemoglobin A1c (Collection Date & Time - 01/27/2025 07:30 AM) ?LAB: UA ClnCatch+Micro w/rflx Cult (Collection Date & Time - 01/27/2025 07:30 AM) * Procedure Codes:?90244 VENIP UNCT, ROUTINE* * * The named appointment provid er may or may not be the originator of this progress note, and it is not deemed complete until electronically signed by the appointment provider. Sign off status: Pending * Provider:?Esa Fleming MD Date:?0 01/27/2025 Generated for Jessa ng/Fanishg/eTransmitting on:?02/09/2025 01:29 PM EDT
--- OUTSIDE RECORDS SUMMARY | 2025-02-09 13:30 | XMS_ITS ---
Author Organization Esa Fleming MD Address [address] [place] [phone] Care Team Providers Care Peach Grower Name Role Phone Esa Fleming Primary Care Provider [phone] REASON FOR VISIT 1 week back pain [...] kg/m2 11/11/2024 weight is down 3 pounds [facility] 08-09-24 Encounters Encounter Location Date Provider Diagnosis Esa Fleming MD [address] [place] [phone] 11/11/2024 Esa Fleming Lumbar back pain M54.50 Assessments Encounter Date Diagnosis (ICD Code) Assessment Notes Treatment Notes Treatment Clinical Notes Section Notes 11/11/2024 Lumbar back pain (ICD-10 - M54.50) is going to continue exercise and is getting better Plan Of Treatment Treatment Notes Assessment Notes Lumbar back pain is going to continue exercise and is getting better Next Appt Details Provider Name:Esa Tabaresana trimble, 02/18/2025 09:00:00 AM, [address], [address], [place], [place], [phone], Provider Name:Esa Suleiman Cristina ier, 01/27/2026 07:00:00 AM, [address] [place] [address] Drive, [address], [place], [place], [phone], Provider Name:Esa Suleiman Cristina ier, 02/03/2026 08:30:00 AM, [address] [place] [address], [address], [place], [place], [phone], Progress Notes * Lo HIDALGO ADOB:1954 (69 yo F)Acc No.[id number]:11/11/2024 Patient:?Lo HIDALGO Provider:?Esa Fleming MD :1955???Age:69 Y???Sex:Female D ate:11/11/2024 Address:[address] [place], [place] [phone] Subjective: * Chief Complaints: * ???1 week [...] Provider:?Esa Fleming MD Date:?0 11/11/2024 Generated for Jessa sanchez/Emanuel/eTrusty on:?02/09/2025 01:30 PM EDT History and Physical Notes * HPI [...]
--- OUTSIDE RECORDS SUMMARY | 2025-02-09 13:30 | XMS_ITS ---
Author Organization Esa Fleming MD Address [address] [place] [phone] Care Team Providers Care Captain Assistant Name Role Phone Esa Fleming Primary Care Provider Allergies Allergen (clinical drug ingredient) Drug/Non Drug Allergy documented on EMR Reaction Allergy Type Onset Date Status Codeine Phosphate rash Drug Allergy Active REASON FOR VISIT annual visit Medications Medication SIG (Take, Route, Frequency, Duration) Notes Start Date End Date Status Albuterol Sulfate HFA 108 (90 Base) MCG/ACT 1 puff as needed Inhalation every 4 hrs for 30 days 02/03/2025 Active Amoxicillin-Pot Clavulanate 875-125 MG 1 tablet Orally every 12 hrs for 7 days 02/03/2025 Active Ibuprofen 800 MG 1 tablet Orally two times a day for 14 days 06/23/2014 Aundrea-Sultana sanchez Social History Tobacco Use: Social History Observation [...] Problem Status W/U Status Risk Notes Problem Asthma (653294720) Asthma (J45.909) Active confirmed Vital Signs Blood pressure systolic 122 mm Hg 02/04/20 25 Blood pressure diastolic 70 mm Hg 025 Height 61 in 02/03/2025 Weight 166 lbs 02/03/2025 BMI 31.36 kg/m2 02/03/2025 weight is up 6 pounds since 11-11-24 Encounters Encounter Location Date Provider Diagnosis Esa Fleming MD [address] [place] [phone] 02/03/2025 Esa Fleming Adult general medical examination Z00.00 ; Asthma J45.909 ; Otitis media H66.90 and Depression screening Z13.31 Assessments Encounter Date Diagnosis (ICD Code) Assessment Notes Treatment Notes Treatment Clinical Notes Section Notes 02/03/2025 Adult general medical examination (ICD-10 - Z00.00) labs reviewed and discussed with patient 02/03/2025 Asthma (ICD-10 - J45.909) patient verbalized understanding of medication and directions for use 02/03/2025 Otitis media (ICD-10 - H66.90) patient verbalized understanding of medication ad directions for use 02/03/2025 Depression screening (ICD-10 - Z13.31) negative screen Plan Of Treatment Medication Medication Name Sig Start Date Stop Date Notes Albuterol Sulfate HFA 108 (9 0 Base) MCG/ACT 1 puff as needed Inhalation every 4 hrs for 30 days 02/03/2025 Amoxicillin-Pot Clavulanate 875-125 MG 1 tablet Orally every 12 hrs for 7 days 02/03/2025 Treatment Notes Assessment Notes Adult general medical examination labs r eviewed and discussed with patient Asthma patient verbalized u nderstanding of medication and directions for use Otitis media patient verbalized u nderstanding of medication ad directions for use Depression screening negative screen Next Appt Details Follow Up: 2 Weeks, Reason: Provider Name:Esa trimble, 02/18/2025 09:00:00 AM, [address], [address], [place], [phone], Provider Name:Esa Suleimna Rayshawnana atilio, 01/27/2026 07:00:00 AM, [address], [address], [place], [place], [phone], Provider Name:Esa trimble, 02/03/2026 08:30:00 AM, [address], [address], [place], [phone], Progress Notes * Lo HIDALGO ADOB:1954 (69 yo F)Acc No.[id number]:02/03/2025 Progress Notes Patient:?XAVI Lo A Provider:?Esa Fleming MD :1955???Age:69 Y???Sex:Female D ate:02/03/2025 Address:[address] [place], [place] [id number] Subjective: * Chief Complaints: * ???Annual visit * HPI: ???Depression Screening:?PHQ-9?Little interest or pleasure in doing things?Not at all,?Feeling down, depressed, or hopeless?Not at all,?Trouble falling or staying asleep, or sleeping too much?Not at all,?Feeling tired or having little energy?Not at all,?Poor appetite or overeating?Not at all,?Feeling bad about yourself or that you are a failure, or have let yourself or your family down?Not at all,?Trouble concentrating on things, such as reading the newspaper or watching television?Not at all,?Moving or speaking so slowly that other people could have noticed; or the opposite, being so fidgety or restless that you have been moving around a lot more than usual?Not at all,?Thoughts that you would be better off or of hurting yourself in some way?Not at all,?Total Score?0.?Interpretation and Intervention?Depression Screening Findings?Negative,?Follow-Up for Depression?: review of PHQ-9 found negative result, no follow-up needed.?Communication Needs:?Communication Needs?Does the patient have a hearing impairment?No,?Does the patient have a vision impairment??Yes,?If yes, what is the vision impairment??Glasses,?Does the patient have a cognition impairment??No.?Fall Risk:?History?Have you had any falls with injury in the past year??No,?Have you had two or more falls in the past year??No.?SDOH Questions:?SDOH Questions?In the past year have you been worried about losing housing??No,?In the past year have you or any family members you live with been unable to get any of the following when it was really needed? Check all that apply:?None.?Symptom(s):? patient is a 69 yo female here for annual visit with review of recent labs and follow up of chronic issues.always coughs when she comes in from outside. worse when nicer outside. hears wheezing at times. * ROS:?General/Constitutional:?Change in appetite?denies.?Chills?denies.?Fever?denies.?Ophthalmologic:?Blurred vision?denies.?Discharge?denies.?Pain?denies.?ENT:?Decreased hearing?denies.?Sore throat?denies.?Swollen glands?denies.?Endocrine:?Cold intolerance?denies.?Excessive thirst?denies.?Heat intolerance?denies.?Weight loss?denies.?Respiratory:?Cough?denies.?Shortness of breath at rest?denies.?Shortness of breath with exertion?denies.?Wheezing?denies.?Cardiovascular:?Chest pain at rest?denies.?Chest pain with exertion?denies.?Irregular heartbeat?denies.?Shortness of breath?denies.?Gastrointestinal:?Abdominal pain?denies.?Change in bowel habits?denies.?Diarrhea?denies.?Nausea?denies.?Rectal bleeding?denies.?Vomiting?denies .?Genitourinary:?Blood in urine?denies.?Difficulty urinating?denies.?Frequent urination?denies.?Urinary incontinence?Denies.?Musculoskeletal:?Painful joints?denies.?Weakness?denies.?Skin:?Dry skin?denies.?Itching?denies.?Denies?Mole(s),? changes in moles, new moles or any lesions of concern.?Denies?Photosensitivity.?Rash?denies.?Neurologic:?Dizziness?denies.?Fainting?denies.?Headache?denies.? * Medical History:? * Surgical History:? * Hospitalization/Major Diagno stic Procedure:? * Family History:?Father: davida cerda 86 yrs, Healthy, diagnosed with COPD.?Mother: alive 84 yrs, Healthy.?Daughter(s): alive.?Son(s): alive.?1 brother(s) . 1 son(s) , 1 daughter(s) . .? FATHER HEALTHY MOTHER HEALTHY, Denies mental health/substance abuse family history, Denies mental health/substance abuse family history, Denies mental health/substance abuse family history, No pertinent family medical history. * Social History:?Tobacco Use:?Tobacco Use/Smoking?Patient is a?nonsmoker,?Additional Findings: Tobacco Non-User?Current non-smoker, currently using no form of tobacco.?Drugs/Alcohol:?Alcohol Screen?Did you have a drink containing alcohol in the past year??Yes,?How often did you have a drink containing alcohol in the past year??Monthly or less (1 point),?How many drinks did you have on a typical day when you were drinking in the past year??1 or 2 drinks (0 point),?How often did you have 6 or more drinks on one occasion in the past year??Never (0 point),?Points?1,?Interpretation?Negative.?Miscellaneous:?Caffeine: yes, frequency:, 1-2 cups per day. Children: yes. Community involvements: yes. Exercise: yes, strength training one a week. Living with: alone. Marital status: . Occupation: works full-time Finance. Pets: cats: dogs:. Travel outside of the [place]: no. * Medications:?Not-Taking/PRNI buprofen 800 MG Tablet 1 tablet Orally two times a day Medication List reviewed and reconciled with the patientNot-Taking/PRN Ibuprofen 800 MG Tablet 1 tablet Orally two times a day Medication List reviewed and reconciled with the patient * Allergies:?Codeine Phosphate : rashyes[Allergies Verified] Objective: * Vitals:?Ht: 61, Wt: 166, BMI :31.36, BP:122/70, Wt-k.3. weight is up 6 pounds since 11-11-24. * ???Past Orders: ???Lab:UA ClnCatch+Micro w/r flx Cult (Order Date - 01/27/2025) (Collection Date & Time - 01/27/2025 07:30 AM) ? Value Reference Range ?Color Urine Yellow - ?Appearance Urine Clear - ?PH 6.5 5.0-9.0 - ?Glucose Urine UA Negative Neg ative - mg/dL ?Urine Blood Negative Negative - ?Specific [place] - Urine 1.025 1.005-1.025 - ?Urine Protein Negative Neg-Tr bright - mg/dL ?Urine Ketones Negative Negati ve - mg/dL ?Nitrite Urine Negative Negati ve - ?Leukocyte Esterase Urine Moderate (2+) A Negative - ?RBC Urine 0-2 0-2 - /HPF ?WBC Urine 11-20 A 0-5 - /HPF ?Squamous Epithelial Cell Urine 0-2 0-2 - /HPF ?Bacteria Urine None Seen None Seen - ?Hyaline Casts Urine 0-2 0-2 - /LPF ???Lab:Complete Blood Count Auto Diff (Order Date - 01/27/2025) (Collection Date & Time - 01/27/2025 07:30 AM) ? Value Reference Range ?White Blood Count 5.0 4. 8-10.8 - X10*3/uL ?Red Blood Count 4.84 4.20 -5.50 - X10*6/uL ?Hemoglobin 14.7 12.0-16.0 - g/dl ?Hematocrit 46.2 37.0-47.0 - % ?Mean Corpuscular Volume 95.5 80.0-98.0 - fL ?Mean Corpuscular Hemoglobin 30.4 27.0-33.0 - pg ?Mean Corpuscular HGB Conc 31.8 31.0-35.0 - g/dl ?Red Cell Distributio n Width 13.2 11.0-16.0 - % ?Platelet Count 300 160-4 00 - X10*3/uL ?Mean Platelet Volume 10.1 9.4-12.3 - fL ?Neutrophils Percent Auto 49.0 45-73 - % ?Imm Gran Pct Auto 0.4 0. 0-0.4 - % ?Lymphocytes Percent Auto 38.6 20-40 - % ?Monocytes Percent Auto 7.8 2-11 - % ?Eosinophils Percent Auto 3.6 0-4 - % ?Basophils Percent Auto 0.6 0-2 - % ?NRBC Pct Auto 0.0 0.0-0. 2 - /100WBC ?Neutrophils Absolute Auto 2.4 2.0-8.3 - x10*3/uL ?Imm Gran Abs Auto 0.02 0. 00-0.03 - X10*3/uL ?Lymphocytes Absolute Auto 1.9 1.2-4.9 - X10*3/uL ?Monocytes Absolute Auto 0.4 0.1-1.2 - X10*3/uL ?Eosinophils Absolute Auto 0.2 0.0-0.4 - X10*3/uL ?Basophils Absolute Auto 0.0 0.0-0.2 - X10*3/uL ?NRBC Abs Auto 0.000 0.0-0. 012 - X10*3/uL ???Lab:Urine Culture (Order Date - 01/27/2025) (Collection Date & Time - 01/27/2025) ? Value Reference Range ?Urine Culture No growth. - ???Lab:Comprehensive [place]. P valery Fast (Order Date - 01/27/2025) (Collection Date & Time - 01/27/2025 07:30 AM) ? Value Reference Range ?Sodium 143 135-145 - mmo l/L ?Bilirubin Total 0.5 0.0- 1.0 - mg/dL ?Aspartate Amino Transferase 23 5-31 - U/L ?Alanine Aminotransferase 23 0-31 - U/L ?Total Protein 6.8 6.5-8. 0 - g/dL ?Albumin Level 4.3 3.5-5. 0 - g/dL ?Alkaline Phosphatase 83 39-117 - U/L ?Potassium 4.1 3.3-5.1 - mmol/L ?Chloride 109 H 96-108 - mm ol/L ?Carbon Dioxide 28 22-29 - mmol/L ?Anion Gap 10 L 12-20 - ?Blood Urea Nitrogen 21 H 9-16 - mg/dL ?Creatinine 0.80 0.5-1.4 - mg/dL ?Estimated Glomerular Filt Rate > 60 - ?Glucose Fasting 94 60-9 9 - mg/dL ?Calcium 9.2 8.4-10.2 - m g/dL ???Lab:Lipid Panel (Order Da 01/27/2025) (Collection Date & Time - 01/27/2025 07:30 AM) ? Value Reference Range ?Triglycerides 109 <150 - mg/dL ?Cholesterol 185 <200 - m g/dL ?LDL Cholesterol Calculated 103 H <100 - mg/dL ?HDL Cholesterol 61 >40 - mg/dL ???Lab:Microalbumin, Random (Order 01/27/2025) (Collection Date & Time 01/27/2025 07:30 AM) ? Value Reference Range ?Creatinine Urine 121.04 - m g/dL ?Microalbumin Urine 8.0 - mg/L ?Microalbum Creatinin e Ratio Ur 6.6 <30 - ug/mg cr ???Lab:Hemoglobin A1c (Order 01/27/2025) (Collection & Time - 01/27/2025 07:30 AM) ? Value Reference Range ?Hemoglobin A1c % 5.3 <6. 0 - % ?Estimated Average Glucose 105 - mg/dL * Examination: ???General Examination: ?GENERAL APPEARANCE:?well developed, well nourished, in no acute distress.?HEAD:?normocephalic, atraumatic.?EYES:?pupils equal, round, reactive to light and accommodation, sclera non-icteric.?EARS:?RIGHT EAR, abnormal with swelling and purulence behind rt tm, LEFT EAR normal.?ORAL CAVITY:?mucosa moist.?THROAT:?clear.?NECK/THYROID:?neck supple, full range of motion, no cervical lymphadenopathy, no bruits.?SKIN:?warm and dry, no suspicious lesions.?HEART:?regular rate and rhythm, S1, S2 normal, no murmurs.?LUNGS:?clear to auscultation bilaterally.?BREASTS:?done by gyhn.?ABDOMEN:?soft, nontender, nondistended, bowel sounds present, normal, no organomegaly , no masses palpable.?RECTAL EXAM:?done by hand brim ironer.?FEMALE GENITOURINARY:?done by hand brim ironer.?EXTREMITIES:?no clubbing, cyanosis, or edema.?NEUROLOGIC:?nonfocal, motor strength normal upper and lower extremities, sensory exam intact.? Assessment: * Assessment: 1.?Adult general medical exa mination - Z00.00 (Primary)???2.?Asthma - J45.909???3.?Otitis media - H66.90???4.?Depression screening - Z13.31??? Plan: * Treatment: 2.?Asthma? Start Albuterol Sulfate HFA Aerosol Solution, 108 (90 Base) MCG/ACT, 1 puff as needed, Inhalation, every 4 hrs, 30 days, 1, Refills 3.?? Notes: patient verbalized understanding of medication and directions for use?? 3.?Otitis media? Start Amoxicillin-Pot Clavulanate Tablet, 875-125 MG, 1 tablet, Orally, every 12 hrs, 7 days, 14 Tablet.?? Notes: patient verbalized understanding of medication ad directions for use?? 4.?Depression screening? Notes: negative screen?? * Procedure Codes:? * Preventive Medicine:? ??Counseling:?Care goal follow-up plan:?Counseling for abnormal BMI provided?Yes,?Above Normal BMI Follow-up?Giving encouragement to exercise.? * Follow Up:?2 Weeks * * Sign off status: Completed true * Provider:?Esa Fleming MD Date:?0 02/03/2025 Generated for Jessa sanchez/Emanuel/Cynthia on:?02/09/2025 01:30 PM EDT History and Physical Notes * HPI (History of Present Illness) Category Sub-Category Detail Notes Category Not es Symptom(s) patient is a 69 yo female here for annual visit with review of recent labs and follow up of chronic issues.always coughs when she comes in from outside. worse when nicer outside. hears wheezing at times. Depression Screening PHQ-9 Little inte rest or pleasure in doing things: Not at all Feeling down, depressed, or hopeless: No t at all Trouble falling or staying asleep, or sl eeping too much: Not at all Feeling tired or having little energy: N ot at all Poor appetite or overeating: Not at all Feeling bad about yourself o r that you are a failure, or have let yourself or your family down: Not at all Trouble concentrating on thi ngs, such as reading the newspaper or watching television: Not at all Moving or speaking so slowly that other people could have noticed; or the opposite, being so fidgety or restless that you have been moving around a lot more than usual: Not at all Thoughts that you would be b esperanza off or of hurting yourself in some way: Not at all Total Score: 0 Interpretation and Intervention Depression Preston fong Findings: Negative Follow-Up for Depression: : review of PH Q-9 found negative result, no follow-up needed SDOH Questions SDOH Questions In the past year have you been worried about losing housing?: No In the past year have you or any family members you live with been unable to get any of the following when it was really needed? Check all that apply:: None Fall Risk History Have you had any falls with injury i n the past year?: No Have you had two or more falls in the year?: No Communication Needs Communication Needs Does the patient have a hearing impairment: No Does the patient have a vision impairmen t?: Yes ?If yes, what is the vision impairment?: Glasses Does the patient have a cognition impair ment?: No Examination Category Sub-Category Detail Notes Category Not es General Examination GENERAL APPEARANCE: well dev eloped, well nourished, in no acute distress HEAD: normocephalic, atrau matic EYES: pupils equal, round, reactive to light and accommodation, sclera non- icteric EARS: RIGHT EAR, abnormal with swelling and purulence behind rt tm, LEFT EAR normal THROAT: clear NECK/THYROID: neck supple, full ra nge of motion, no cervical lymphadenopathy, no bruits HEART: regular rate and rhy thm, S1, S2 normal, no murmurs LUNGS: clear to auscultatio n bilaterally ABDOMEN: soft, nontender, non distended, bowel sounds present, normal, no organomegaly , no masses palpable NEUROLOGIC: nonfocal, motor stre ngth normal upper and lower extremities, sensory exam intact SKIN: warm and dry, no eliane picious lesions EXTREMITIES: no clubbing, cyanosi s, or edema BREASTS: done by gyhn RECTAL EXAM: done by hand brim ironer FEMALE GENITOURINARY: done by hand brim ironer ORAL CAVITY: mucosa moist
== END 2025-02-09 11:11 | disposition home or self-care (01) ==
LOC: HO.MAMMO 11:10
PROVIDERS: PCP Internal Medicine; Visit Provider Internal Medicine
DX: Z12.31 Encounter for screening mammogram for malignant neoplasm of breast (principal)
CPT/HCPCS: 77063; 77067

== ENCOUNTER → 2025-02-09 11:30 | Outpatient (BNV) | payer MEDICARE, SELFPAY | PROVIDERS: PCP Internal Medicine; Visit Provider Internal Medicine | DX: Z12.31 Encounter for screening mammogram for malignant neoplasm of breast (principal) | CPT/HCPCS: 77063; 77067 ==

== ENCOUNTER 2025-03-21 15:28 | Outpatient (REF) | payer MEDICARE, SELFPAY ==
[2025-03-21 15:47] LABS: MANUAL DIFF FLAG NO
[2025-03-21 16:01] LABS: Basophils Percent Auto 0.5 % (0-2); Eosinophils Absolute Auto 0.1 X10*3/uL (0.0-0.4); Eosinophils Percent Auto 2.1 % (0-4); Hematocrit 44.7 % (37.0-47.0); Hemoglobin 14.6 g/dl (12.0-16.0); Imm Gran Abs Auto 0.05 X10*3/uL (0.00-0.03); Imm Gran Pct Auto 0.8 % (0.0-0.4); Lymphocytes Absolute Auto 1.5 X10*3/uL (1.2-4.9); Lymphocytes Percent Auto 23.3 % (20-40); Mean Corpuscular HGB Conc 32.7 g/dl (31.0-35.0); Mean Corpuscular Hemoglobin 30.9 pg (27.0-33.0); Mean Corpuscular Volume 94.5 fL (80.0-98.0); Mean Platelet Volume 9.8 fL (9.4-12.3); Monocytes Absolute Auto 0.5 X10*3/uL (0.1-1.2); Monocytes Percent Auto 8.2 % (2-11); Neutrophils Absolute Auto 4.3 x10*3/uL (2.0-8.3); Neutrophils Percent Auto 65.1 % (45-73); Platelet Count 311 X10*3/uL (160-400); Red Blood Count 4.73 X10*6/uL (4.20-5.50); Red Cell Distribution Width 13.9 % (11.0-16.0); White Blood Count 6.6 X10*3/uL (4.8-10.8)
--- OUTSIDE RECORDS SUMMARY | 2025-03-21 16:42 | XMS_ITS ---
Author Organization Esa Fleming MD Address [address] [place] [phone] Care Team Providers Care Housekeeper Child Care Name Role Phone Esa Fleming Primary Care Provider Allergies Allergen (clinical drug ingredient) Drug/Non Drug Allergy documented on EMR Reaction Allergy Type Onset Date Status Codeine Phosphate rash Drug Allergy Active Results Component Value Reference Range Notes Complete Blood Count Auto Di ff Reviewed date:03/21/2025 04:25:27 PM Interpretation: Performing Lab:[facility], [address] [place] [phone] Notes/Report: White Blood Count 6.6 4.8-10.8 X10*3/uL [...] X10*3/uL NRBC Abs Auto 0.000 0.0-0.012 X10*3/uL REASON FOR VISIT Jaundice x 5 days [...] times a day for 14 days 06/23/2014 Sebastian sanchez Vital Signs Blood pressure systolic 142 mm Hg 03/21/20 25 Blood pressure diastolic 80 mm Hg 025 Height 61 in 03/21/2025 Weight 164 lbs 03/21/2025 BMI 30.98 kg/m2 03/21/2025 weight is down2 pounds since 03-03-25 Encounters Encounter Location Date Provider Diagnosis Esa Fleming MD [address] [phone] 03/21/2025 Esa Fleming Jaundice R17 Assessments Encounter Date Diagnosis (ICD Code) Assessment Notes Treatment Notes Treatment Clinical Notes Section Notes 03/21/2025 Jaundice (ICD-10 - R17) Plan Of Treatment Medication Medication Name Sig Start Date Stop Date Notes Sertraline HCl 50 MG 1 tablet Orally Onc e a day for 30 day(s) 03/21/2025 Pending Test Test Name Order Date US [facility] 03/21/2025 Comprehensive [place]. Panel Fast Hepatitis A,B,C Profile 03/21/2025 Next Appt Details Follow Up: 2 - 3 Days, Reaso n: Provider Name:Esa trimlbe, 03/24/2025 07:30:00 AM, [address] [place] [address], [address] [place] [address], [phone], Provider Name:Esa trimble, 04/01/2025 10:30:00 AM, [address] [place] [address], [address] [place] [address], [id number], Provider Name:Esa trimble, 01/27/2026 07:00:00 AM, [address] [place] [address], [address] [place] [address], [phone], Provider Name:Esa trimble, 02/03/2026 08:30:00 AM, [address] [place] [address], [address] [place] [address], [id number], Progress Notes * Lo HIDALGO ADOB:1954 (70 yo F)Acc No.[id number]:03/21/2025 Progress Notes Patient:?Lo HIDALGO Provider:?Esa Fleming MD :1955???Age:70 Y???Sex:Female D ate:03/21/2025 Address:[address] [place] [id number] Subjective: * Chief Complaints: * ???1. Jaundice x 5 days. * HPI: ???Symptom(s):?patient is a 70 yo female here with complaint of jaundice for 5 days/ has no pain in abdomen. just uncomfortable. doesn't feel like eating/ has no known exposure to anyone with hepatiis. has no fevers night sweats or tired. * ROS:?General/Constitutional:?Denies?Chills.?Denies?Fatigue.?Denies?Fever.?Denies?Headache.?ENT:?Patient denies?decreased sense of smell, any loss of taste, sore throat.?Denies?Sore throat.?Respiratory:?Denies?Cough.?Denies?Shortness of breath at rest.?Denies?Shortness of breath with exertion.?Gastrointestinal:?Denies?Abdominal pain.?Denies?Blood in stool.?Denies?Change in bowel habits.?Denies?Diarrhea.?Denies?Nausea.?Musculoskeletal:?Patient denies?muscle aches.?Peripheral Vascular:?Patient denies?red and blue toes.? * Medical History:?colonoscopy 2007 due in 10 years, Was due in 2017; [facility] * Medications:?Taking Albutero l Sulfate HFA 108 (90 Base) MCG/ACT Aerosol Solution 1 puff as needed Inhalation every 4 hrs , Not-Taking/PRN Ibuprofen 800 MG Tablet 1 tablet Orally two times a day , Discontinued Amoxicillin-Pot Clavulanate 875-125 MG Tablet 1 tablet Orally every 12 hrs , Medication List reviewed and reconciled with the patient * Allergies:?Codeine Phosphate : rash. Objective: * Vitals:?Ht: 61, Wt: 164, BMI :30.98, BP:142/80, Wt-k.39. weight is down2 pounds since 03-03-25. * Examination: ???General Examination: ?GENERAL APPEARANCE:?obviously jaundiced.?SKIN:?jaundiced.?HEART:?no murmurs, rubs, gallops, regular rate and rhythm.?LUNGS:?no wheezes, rales, rhonchi, good air movement, clear to auscultation bilaterally.?ABDOMEN:?soft, nontender, nondistended, no rebound tenderness, no organomegaly.? Assessment: * Assessment: 1.?Jaundice - R17 (Primary)? ?? Plan: * Treatment: * Follow Up:?2 - 3 Days * * The named appointment provid er may or may not be the originator of this progress note, and it is not deemed complete until electronically signed by the appointment provider. Sign off status: Pending * Provider:?Esa Fleming MD Date:?0 03/21/2025 Generated for Jessa sanchez/Emanuel/Anaitting on:?03/21/2025 04:42 PM EDT History and Physical Notes * [...]
[2025-03-21 17:07] LABS: Alanine Aminotransferase 531 U/L (0-31); Albumin Level 4.5 g/dL (3.5-5.0); Alkaline Phosphatase 350 U/L (39-117); Anion Gap 12 (12-20); Aspartate Amino Transferase 230 U/L (5-31); Bilirubin Total 7.1 mg/dL (0.0-1.0); Blood Urea Nitrogen 15 mg/dL (9-16); Carbon Dioxide 27 mmol/L (22-29); Chloride 106 mmol/L (96-108); Estimated Glomerular Filt Rate > 60; Glucose Fasting 95 mg/dL (60-99); Sodium 141 mmol/L (135-145); Total Protein 7.3 g/dL (6.5-8.0)
[2025-03-22 08:51] LABS: HBc Num1 0.06 S/CO (0.00-0.79); HBsAGNum1 0.34 S/CO (0.00-0.99); Hepatitis A Antibody IgM 0.15 Index (0-0.79); Hepatitis B Core Antibody Nonreactive (Nonreactive); Hepatitis B Surface Antigen Negative (Negative); ~HepC Num1 0.13 S/CO (0.00-0.79); ~Hepatitis A Antibody IgM Nonreactive (Nonreactive); ~Hepatitis B Surface Antibody NONREACTIVE (Nonreactive); ~Hepatitis C Antibody Nonreactive (Nonreactive)
== END 2025-03-21 15:29 | disposition home or self-care (01) ==
LOC: HO.LAB 15:28
PROVIDERS: PCP Internal Medicine; Visit Provider Internal Medicine
DX: R17 Unspecified jaundice (principal)
CPT/HCPCS: 36415; 80053; 85025; 86704; 86706; 86709; 86803; 87340

== ENCOUNTER 2025-03-22 09:43 | Outpatient (REF) | payer MEDICARE, SELFPAY ==
--- NOTE | ~2025-03-22 | US_ITS ---
CLINICAL HISTORY: Unspecified jaundice US abdomen complete. COMPARISON: None Technique: Real time sonographic imaging, including color-flow imaging, was performed by the family service worker. Multiple public utilities sales representative static images were saved for review. FINDINGS: The visualized aorta and inferior vena cava are normal caliber. The visualized portions of the pancreas appear normal. The liver has normal echotexture. The main portal vein is antegrade. Liver, right lobe size: 14.1 cm, normal. The gallbladder is normal in size. No cholelithiasis or sludge identified. There is a negative sonographic Santoro's sign. Gallbladder wall: 2 mm, normal. Common bile duct: 3 mm, normal. Right kidney: Cortical medullary differentiation is maintained. Normal color flow by Doppler. Calculus present at the superior pole measuring 0.3 x 0.3 x 0.3 cm. No hydronephrosis. Right kidney length: 9.3 cm Left kidney: Cortical medullary differentiation is maintained. Normal color flow by Doppler. Calculus of the mid/lower pole of the left kidney measuring 0.4 x 0.2 x 0.4 cm. Dilated calices present along the lower pole. Left kidney length: 10.2 cm The spleen has normal echogenicity. Splenic length: 9.8 cm, normal. No free intraperitoneal fluid identified. IMPRESSION: 1. Mildly dilated left renal calices along the lower pole, clear etiology. 2. Nonobstructing renal calculi present bilaterally measuring up to 0.3 cm on the right and 0.4 cm on the left. 3. No evidence of cholecystitis. This document has been electronically signed by: Salvador Yanes MD on 03/22/2025 14:52:41
--- OUTSIDE RECORDS SUMMARY | 2025-03-22 10:50 | XMS_ITS ---
Author Organization Esa Fleming MD Address [address] [place] [phone] Care Team Providers Care Casing Puller Name Role Phone Esa Fleming Primary Care Provider Allergies Allergen (clinical drug ingredient) Drug/Non Drug Allergy documented on EMR Reaction Allergy Type Onset Date Status Codeine Phosphate rash Drug Allergy Active Results Component Value Reference Range Notes Comprehensive [place]. Panel Fa st (Not yet reviewed by provider) Interpretation: Performing Lab:[facility], [address] [place] [phone] Notes/Report: Sodium 141 135-145 mmol/L Potassium 4.0 [...] 3.5-5.0 g/dL Alkaline Phosphatase 350 39-117 U/L Complete Blood Count Auto Di ff Reviewed date:03/21/2025 04:25:27 PM Interpretation: Performing Lab:[facility], [address] [place] [phone] Notes/Report: White Blood Count 6.6 4.8-10.8 X10*3/uL [...] X10*3/uL NRBC Abs Auto 0.000 0.0-0.012 X10*3/uL Hepatitis A,B,C Profile Reviewed date:03/22/2025 09:59:17 AM Interpretation: Performing Lab:[facility], [address] [place] [phone] Notes/Report: Hepatitis A Antibody IgM Nonreactive Nonreactive [...] Date Provider Diagnosis Esa Fleming MD [address] [place], [place] [phone] 03/21/2025 Esa Fleming Jaundice R17 Assessments Encounter Date Diagnosis (ICD Code) Assessment Notes Treatment Notes Treatment Clinical Notes Section Notes 03/21/2025 Jaundice (ICD-10 - R17) Plan Of Treatment Medication Medication Name Sig Start Date Stop Date Notes Sertraline HCl 50 MG 1 tablet Orally Onc e a day for 30 day(s) 03/21/2025 Pending Test Test Name Order Date US ABD 03/21/2025 Comprehensive [place]. Panel Fast Next Appt Details Follow Up: 2 - 3 Days, Reaso n: Provider Name:Esa Evans ier, 03/24/2025 07:30:00 AM, [address], [address], [place], [phone], Provider Name:Esa Evans ier, 04/01/2025 10:30:00 AM, [address], [address], [place], [phone], Provider Name:Esa Evans ier, 01/27/2026 07:00:00 AM, [address], [address], [place], [phone], Provider Name:Esa Evans ier, 02/03/2026 08:30:00 AM, [address], [address], [place], [place], [phone], Progress Notes * Lo HIDALGO ADOB:1954 (70 yo F)Acc No.[id number]:03/21/2025 Progress Notes Patient:?XAVI Lo A Provider:?Esa Fleming MD :1955???Age:70 Y???Sex:Female D ate:03/21/2025 Address:[address] [place], [place] [phone] Subjective: * Chief Complaints: * ???1. Jaundice [...] 2017; [facility] * Medications:?Taking [...] MD Date:?0 03/21/2025 Generated for Jessa sanchez/Emanuel/Anaitting on:?03/22/2025 10:50 AM EDT History and Physical Notes * [...]
== END 2025-03-22 09:44 | disposition home or self-care (01) ==
LOC: HO.US 09:43
PROVIDERS: PCP Internal Medicine; Visit Provider Internal Medicine
DX: R17 Unspecified jaundice (principal)
CPT/HCPCS: 76700

== ENCOUNTER → 2025-03-22 09:55 | Outpatient (BNV) | payer MEDICARE, SELFPAY | PROVIDERS: PCP Internal Medicine; Visit Provider Radiology Diagnostic Radiology | DX: N20.0 Calculus of kidney (principal) | CPT/HCPCS: 76700 ==

== ENCOUNTER 2025-03-25 07:29 | Outpatient (REF) | payer MEDICARE, SELFPAY ==
[2025-03-25 11:26] LABS: MANUAL DIFF FLAG NO
[2025-03-25 12:06] LABS: Basophils Percent Auto 0.7 % (0-2); Eosinophils Absolute Auto 0.2 X10*3/uL (0.0-0.4); Eosinophils Percent Auto 2.8 % (0-4); Hematocrit 44.7 % (37.0-47.0); Hemoglobin 14.6 g/dl (12.0-16.0); INTERNATIONAL NORM RATIO 0.8 (0.9-1.1); Imm Gran Abs Auto 0.04 X10*3/uL (0.00-0.03); Imm Gran Pct Auto 0.7 % (0.0-0.4); Lymphocytes Absolute Auto 1.4 X10*3/uL (1.2-4.9); Lymphocytes Percent Auto 22.8 % (20-40); Mean Corpuscular HGB Conc 32.7 g/dl (31.0-35.0); Mean Corpuscular Hemoglobin 30.6 pg (27.0-33.0); Mean Corpuscular Volume 93.7 fL (80.0-98.0); Mean Platelet Volume 10.5 fL (9.4-12.3); Monocytes Absolute Auto 0.6 X10*3/uL (0.1-1.2); Monocytes Percent Auto 9.8 % (2-11); Neutrophils Absolute Auto 3.9 x10*3/uL (2.0-8.3); Neutrophils Percent Auto 63.2 % (45-73); Platelet Count 364 X10*3/uL (160-400); Prothrombin Time 9.4 SEC (10.9-12.4); Red Blood Count 4.77 X10*6/uL (4.20-5.50); Red Cell Distribution Width 14.2 % (11.0-16.0); White Blood Count 6.2 X10*3/uL (4.8-10.8)
[2025-03-25 12:09] LABS: Partial Thromboplastin Time 34.3 SEC (26.0-36.8)
[2025-03-25 12:42] LABS: Alanine Aminotransferase 470 U/L (0-31); Albumin Level 4.3 g/dL (3.5-5.0); Alkaline Phosphatase 357 U/L (39-117); Aspartate Amino Transferase 241 U/L (5-31); Bilirubin Direct 6.9 mg/dL (0.0-0.5); Bilirubin Total 9.7 mg/dL (0.0-1.0); Iron 75 mcg/dL (30-160); Lipase 39 U/L (8-78); Percent Iron Saturation 25 % (15-50); Total Iron Binding Capacity 303 mcg/dL (228-428); Total Protein 7.1 g/dL (6.5-8.0); Unsaturated Iron Binding 228 ug/dL
[2025-03-25 12:54] LABS: Ferritin 504 ng/mL (10-250)
[2025-03-28 13:43] LABS: Mitochondrial Antibodies NEGATIVE (NEGATIVE)
[2025-03-30 07:09] LABS: Smooth Muscle Antibody <20 U (<20)
[2025-03-31 10:35] LABS: ANA Pattern 2 Nuclear, Speckled; Anti Nuclear Antibody Pattern Nuclear, Nucleolar; Anti Nuclear Antibody Screen POSITIVE (NEGATIVE)
== END 2025-03-25 07:30 | disposition home or self-care (01) ==
LOC: HO.10HDL 07:29
PROVIDERS: Referring Provider Internal Medicine; Visit Provider Internal Medicine Gastroenterology
DX: R17 Unspecified jaundice (principal)
CPT/HCPCS: 36415; 80076; 82728; 83540; 83690; 85025; 85610; 85730; 86015; 86038; 86039; 86381

== ENCOUNTER 2025-04-05 07:29 | Outpatient (REF) | payer MEDICARE, SELFPAY ==
--- OUTSIDE RECORDS SUMMARY | 2025-04-05 07:32 | XMS_ITS ---
Author Organization Esa Fleming MD Address [address] [place] [phone] Care Team Providers Care Fig Bar Machine Operator Name Role Phone Esa Fleming Primary Care Provider [phone] Allergies Allergen (clinical drug ingredient) Drug/Non Drug Allergy documented on EMR Reaction Allergy Type Onset Date Status Codeine Phosphate rash Drug Allergy Active Results Component Value Reference Range Notes Complete Blood Count Auto Di ff Reviewed date:03/21/2025 04:25:27 PM Interpretation: Performing Lab:[facility], [address] [place] [phone] Notes/Report: White Blood Count 6.6 4.8-10.8 X10*3/uL [...] NRBC Abs Auto 0.000 0.0-0.012 X10*3/uL Comprehensive [place]. Panel Fa st Reviewed date:03/22/2025 12:29:49 PM Interpretation: Performing Lab:[facility], [address] [place] [phone] Notes/Report: Sodium 141 135-145 mmol/L Potassium 4.0 [...] Profile Reviewed date:03/22/2025 09:59:17 AM Interpretation: Performing Lab:[facility], [address] [place] [phone] Notes/Report: Hepatitis A Antibody IgM Nonreactive Nonreactive [...] Date Provider Diagnosis Esa Fleming MD [address] [place], [place] [phone] 03/21/2025 Esa Fleming Jaundice R17 Assessments Encounter [...] 02:00:00 PM, [address], [address], [place], [phone], Provider Name:Esa Evans isar, 01/27/2026 07:00:00 AM, [address], [address], [place], [place], [phone], Provider Name:Esa Evans isar, 02/03/2026 08:30:00 AM, [address], [address], [place], [place], [phone], Progress Notes * Lo HIDALGO ADOB:1954 (70 yo F)Acc No.[id number]:03/21/2025 Progress Notes Patient:?Lo HIDALGO Provider:?Esa Fleming MD :1955???Age:70 Y???Sex:Female D ate:03/21/2025 Address:[address] [place], [place] [phone] Subjective: * Chief Complaints: * ???Jaundice x 5 days * HPI: ???Symptom(s):?patient is a 70 yo [...] History:? * Hospitalization/Major Diagno stic Procedure:? * Medications:?TakingAlbuterol Sulfate HFA 108 (90 Base) MCG/ACT Aerosol Solution 1 puff as needed Inhalation every 4 hrs Taking Albuterol Sulfate HFA 108 (90 Base) MCG/ACT Aerosol Solution 1 puff as needed Inhalation every 4 hrs Not-Taking/PRNIbuprofen 800 MG Tablet 1 tablet Orally two times a day Not- Taking/PRN Ibuprofen 800 MG Tablet 1 tablet Orally two times a day DiscontinuedAmoxicillin- Pot Clavulanate 875-125 MG Tablet 1 tablet Orally every 12 hrs Medication List reviewed and reconciled with the patientDiscontinued Amoxicillin-Pot Clavulanate 875-125 MG Tablet 1 tablet Orally every 12 hrs Medication List reviewed and reconciled with the patient * Allergies:?Codeine Phosphate : rashyes[Allergies Verified] Objective: * Vitals:?Ht: 61, Wt: 164, BMI :30.98, BP:142/80, Wt-k.39. weight is down2 pounds since 03-03-25. * Examination: ???General Examination: ?GENERAL APPEARANCE:?obviously jaundiced.?SKIN:?jaundiced.?HEART:?no murmurs, rubs, gallops, regular rate and rhythm.?LUNGS:?no wheezes, rales, rhonchi, good air movement, clear to auscultation bilaterally.?ABDOMEN:?soft, nontender, nondistended, no rebound tenderness, no organomegaly.? Assessment: * Assessment: 1.?Jaundice - R17 (Primary)? ?? Plan: * Treatment: * Procedure Codes:? * Follow Up:?2 - 3 Days * * Sign off status: Completed true * Provider:?Esa Fleming MD Date:?0 03/21/2025 Generated for Jessa sanchez/Emanuel/eTrafasmitting on:?04/05/2025 07:32 AM EDT History and Physical Notes * [...]
[2025-04-05 08:08] LABS: Hematocrit 43.9 % (37.0-47.0); Hemoglobin 14.6 g/dl (12.0-16.0); Mean Corpuscular HGB Conc 33.3 g/dl (31.0-35.0); Mean Corpuscular Hemoglobin 30.8 pg (27.0-33.0); Mean Corpuscular Volume 92.6 fL (80.0-98.0); Mean Platelet Volume 10.2 fL (9.4-12.3); Platelet Count 352 X10*3/uL (160-400); Red Blood Count 4.74 X10*6/uL (4.20-5.50); Red Cell Distribution Width 14.1 % (11.0-16.0); White Blood Count 5.5 X10*3/uL (4.8-10.8)
[2025-04-05 08:14] LABS: INTERNATIONAL NORM RATIO 0.8 (0.9-1.1); Prothrombin Time 9.7 SEC (10.9-12.4)
[2025-04-05 08:17] LABS: Partial Thromboplastin Time 34.4 SEC (26.0-36.8)
[2025-04-05 08:46] LABS: Alanine Aminotransferase 245 U/L (0-31); Alkaline Phosphatase 304 U/L (39-117); Aspartate Amino Transferase 165 U/L (5-31); Bilirubin Direct 4.6 mg/dL (0.0-0.5); Bilirubin Total 6.4 mg/dL (0.0-1.0); Blood Urea Nitrogen 24 mg/dL (9-16); Estimated Glomerular Filt Rate > 60; Total Protein 6.7 g/dL (6.5-8.0)
[2025-04-14 16:23] LABS: FIB-ALT 179 U/L (6-29); FIB-Alpha-2-Macroglobulin 171 mg/dL (106-279); FIB-Apolipoprotein A1 115 mg/dL (101-198); FIB-GGT 48 U/L (3-65); FIB-Haptoglobin 60 mg/dL (43-212); Liver Fibrosis Score 0.83; Liver Fibrosis Stage F4; Nec Inflam Act Grade A3; Nec Inflam Act Score 0.89
== END 2025-04-05 07:30 | disposition home or self-care (01) ==
LOC: HO.LAB 07:29
PROVIDERS: PCP Internal Medicine; Visit Provider Internal Medicine Gastroenterology
DX: R17 Unspecified jaundice (principal)
CPT/HCPCS: 36415; 80076; 81596; 82565; 84520; 85027; 85610; 85730

== ENCOUNTER 2025-04-14 14:49 | Outpatient (REF) | payer MEDICARE, SELFPAY ==
--- OUTSIDE RECORDS SUMMARY | 2025-03-21 10:15 | XMS_ITS ---
Author Organization Esa Fleming MD Address [address] [place] [phone] Care Team Providers Care Hydraulic Assembler Name Role Phone Esa Fleming Primary Care Provider [phone] Allergies Allergen (clinical drug ingredient) Drug/Non Drug Allergy documented on EMR Reaction Allergy Type Onset Date Status Codeine Phosphate rash Drug Allergy Active Results Component Value Reference Range Notes Complete Blood Count Auto Di ff Reviewed date:03/21/2025 04:25:27 PM Interpretation: Performing Lab:[facility], [address] [place] [phone] Notes/Report: White Blood Count 6.6 4.8-10.8 X10*3/uL Red Blood Count 4.73 4.20-5.50 X10*6/uL Hemoglobin 14.6 12.0-16.0 g/dl Hematocrit 44.7 37.0-47.0 % Mean Corpuscular Volume 94.5 80.0-98.0 fL Mean Corpuscular Hemoglobin 30.9 27.0-33.0 pg Mean Corpuscular HGB Conc 32.7 31.0-35.0 g/dl Red Cell Distribution Width 13.9 11.0-16.0 % Platelet Count 311 160-400 X10*3/uL Mean Platelet Volume 9.8 9.4-12.3 fL Neutrophils Percent Auto 65.1 45-73 % Imm Gran Pct Auto 0.8 0.0-0.4 % Lymphocytes Percent Auto 23.3 20-40 % Monocytes Percent Auto 8.2 2-11 % Eosinophils Percent Auto 2.1 0-4 % Basophils Percent Auto 0.5 0-2 % NRBC Pct Auto 0.0 0.0-0.2 /100WBC Neutrophils Absolute Auto 4.3 2.0-8.3 x10*3/u L Imm Gran Abs Auto 0.05 0.00-0.03 X10*3/uL Lymphocytes Absolute Auto 1.5 1.2-4.9 X10*3/u L Monocytes Absolute Auto 0.5 0.1-1.2 X10*3/uL Eosinophils Absolute Auto 0.1 0.0-0.4 X10*3/u L Basophils Absolute Auto 0.0 0.0-0.2 X10*3/uL NRBC Abs Auto 0.000 0.0-0.012 X10*3/uL Comprehensive [place]. Panel Fa st Reviewed date:03/22/2025 12:29:49 PM Interpretation: Performing Lab:[facility], [address] [place] [phone] Notes/Report: Sodium 141 135-145 mmol/L Potassium 4.0 3.3-5.1 mmol/L Chloride 106 96-108 mmol/L Carbon Dioxide 27 22-29 mmol/L Anion Gap 12 12-20 Blood Urea Nitrogen 15 9-16 mg/dL Creatinine 0.89 0.5-1.4 mg/dL Mild Icterus.I nterpret result with caution. Estimated Glomerular Filt Rate > 60 Chronic Kidney Disease: Estimated GFR < 60 mL/min/1.73m2 Severe Kidney Disease: Estimated GFR < 15 mL/min/1.73m2 Glucose Fasting 95 60-99 mg/dL Calcium 10.0 8.4-10.2 mg/dL Bilirubin Total 7.1 0.0-1.0 mg/dL Mild Icteru s. Aspartate Amino Transferase 230 5-31 U/L Alanine Aminotransferase 531 0-31 U/L Total Protein 7.3 6.5-8.0 g/dL Albumin Level 4.5 3.5-5.0 g/dL Alkaline Phosphatase 350 39-117 U/L Hepatitis A,B,C Profile Reviewed date:03/22/2025 09:59:17 AM Interpretation: Performing Lab:[facility], [address] [place] [phone] Notes/Report: Hepatitis A Antibody IgM Nonreactive Nonreactive IgM antibodies to HAV not detected; does not exclude early acute or recovered HAV infection. Hepatitis B Surface Antibody NONREACTIVE Nonreactive Nonreactive: < 8.00 mIU/mL Hepatitis B Core Antibody Nonreactive Nonreactive Hepatitis C Antibody Nonreactive Nonreactive Antibodies to HCV not detected; does not exclude early acute HCV infection. Hepatitis B Surface Antigen Negative Negative REASON FOR VISIT Jaundice x 5 days Medications Medication SIG (Take, Route, Frequency, Duration) Notes Start Date End Date Status Sertraline HCl 50 MG 1 tablet Orally Onc e a day for 30 day(s) 03/21/2025 Active Albuterol Sulfate HFA 108 (90 Base) MCG/ACT 1 puff as needed Inhalation every 4 hrs 02/03/2025 Active Ibuprofen 800 MG 1 tablet Orally two times a day for 14 days 06/23/2014 Not-Taki ng Vital Signs Blood pressure systolic 142 mm Hg 03/21/20 25 Blood pressure diastolic 80 mm Hg 025 Height 61 in 03/21/2025 Weight 164 lbs 03/21/2025 BMI 30.98 kg/m2 03/21/2025 weight is down2 pounds since 03-03-25 Encounters Encounter Location Date Provider Diagnosis Esa Fleming MD [address] [facility] [place], [place] [phone] 03/21/2025 Esa Fleming Jaundice R17 Assessments Encounter Date Diagnosis (ICD Code) Assessment Notes Treatment Notes Treatment Clinical Notes Section Notes 03/21/2025 Jaundice (ICD-10 - R17) Plan Of Treatment Medication Medication Name Sig Start Date Stop Date Notes Sertraline HCl 50 MG 1 tablet Orally Onc e a day for 30 day(s) 03/21/2025 Pending Test Test Name Order Date US ABD 03/21/2025 Next Appt Details Follow Up: 2 - 3 Days, Reaso n: Provider Name:Esa Evans ier, 04/18/2025 02:00:00 PM, [address], [address], [place], [place], [phone], Provider Name:Esa Evans ier, 01/27/2026 07:00:00 AM, [address], [address], [place], [phone], Provider Name:Esa Evans ier, 02/03/2026 08:30:00 AM, [address], [address], [place], [place], [phone], Progress Notes * Lo HIDALGO ADOB:1954 (70 yo F)Acc No.[id number]:03/21/2025 Progress Notes Patient: Lo BUSTILLOS Provider: Lilibeth Fleming MD :1955 A ge:70 Y S ex:Female Date:03/21/2025 Address:[address] [place], [place] [phone] Subjective: * Chief Complaints: * J aundice x 5 days * HPI: S ymptom(s): patient is a 70 yo female here with complaint of jaundice for 5 days/ has no pain in abdomen. just uncomfortable. doesn't feel like eating/ has no known exposure to anyone with hepatiis. has no fevers night sweats or tired. * ROS: G eneral/Constitutional: Denies C hills. D enies F atigue. D enies F ever. D enies H eadache. E NT: Patient denies d ecreased sense of smell, any loss of taste, sore throat. D enies S ore throat. R espiratory: Denies C ough. D enies S hortness of breath at rest. D enies S hortness of breath with exertion. G astrointestinal: Denies A bdominal pain. D enies B lood in stool.?Denies C hange in bowel habits. D enies D iarrhea. D enies N ausea. ? M usculoskeletal: Patient denies m uscle aches. P eripheral Vascular: Patient denies r ed and blue toes. * Medical History: * Surgical History: * Hospitalization/Major Diagno stic Procedure: * Medications: T akingAlbuterol Sulfate HFA 108 (90 Base) MCG/ACT Aerosol Solution 1 puff as needed Inhalation every 4 hrs Taking Albuterol Sulfate HFA 108 (90 Base) MCG/ACT Aerosol Solution 1 puff as needed Inhalation every 4 hrs Not-Taking/PRNIbuprofen 800 MG Tablet 1 tablet Orally two times a day Not-Taking/PRN Ibuprofen 800 MG Tablet 1 tablet Orally two times a day DiscontinuedAmoxicillin-Pot Clavulanate 875-125 MG Tablet 1 tablet Orally every 12 hrs Medication List reviewed and reconciled with the patientDiscontinued Amoxicillin-Pot Clavulanate 875-125 MG Tablet 1 tablet Orally every 12 hrs Medication List reviewed and reconciled with the patient * Allergies: C odeine Phosphate: rashyes[Allergies Verified] Objective: * Vitals: H t: 61, Wt: 164, BMI:30.98, BP:142/80, Wt-k.39. weight is down2 pounds since 03-03-25. * Examination: G eneral Examination: GENERAL APPEARANCE: o bviously jaundiced. SKIN: j aundiced. HEART: n o murmurs, rubs, gallops, regular rate and rhythm.? LUNGS: n o wheezes, rales, rhonchi, good air movement, clear to auscultation bilaterally. ABDOMEN: s oft, nontender, nondistended, no rebound tenderness, no organomegaly. Assessment: * Assessment: 1. J aundice - R17 (Primary) Plan: * Treatment: * Procedure Codes: * Follow Up: 2 - 3 Days * * Sign off status: Completed true * Provider: Lilibeth Fleming MD Date: 0 03/21/2025 Generated for Jessa sanchez/Emanuel/Anaitting on: 04/14/2025 06:00 PM EDT History and Physical Notes * HPI (History of Present Illness) Category Sub-Category Detail Notes Category Not es Symptom(s) patient is a 70 yo female here with complaint of jaundice for 5 days/ has no pain in abdomen. just uncomfortable. doesn't feel like eating/ has no known exposure to anyone with hepatiis. has no fevers night sweats or tired Examination Category Sub-Category Detail Notes Category Not es General Examination GENERAL APPEARANCE: obviously tuan diced HEART: no murmurs, rubs, ga llops, regular rate and rhythm LUNGS: no wheezes, rales, r honchi, good air movement, clear to auscultation bilaterally ABDOMEN: soft, nontender, non distended, no rebound tenderness, no organomegaly SKIN: jaundiced
--- NOTE | ~2025-04-14 | MR_ITS ---
EXAMINATION: MR ABDOMEN WITHOUT THEN WITH IV CONTRAST HISTORY: Jaundice. COMPARISON: Correlation is made with an abdominal ultrasound dated 03/22/2025. TECHNIQUE: Axial in and out of phase T1-weighted gradient echo, axial diffusion weighted, and axial and coronal HASTE T2 with fat saturation images were obtained through the abdomen. 3D MRCP Reconstructed and thin and thick slab images of the biliary tree were obtained. Subsequently, fat suppressed axial and coronal T1-weighted images were obtained after the intravenous administration of 7 mL Gadavist. FINDINGS: Liver: There is no loss of signal intensity in the liver on opposed phase imaging to suggest steatosis. There is no enhancing liver mass. The hepatic and portal veins are patent. There is no intra- or extrahepatic biliary dilatation. Gallbladder: No gallstones are identified. Spleen: The spleen is unremarkable. Pancreas: The pancreas is unremarkable. There is no enhancing pancreatic mass. The pancreatic duct is normal in caliber. Adrenals: The adrenal glands are unremarkable. Kidneys: There is a 10 mm cyst in the interpolar region of the right kidney and an 8 mm cyst in the interpolar region of the left kidney. There is no hydronephrosis. Lymph nodes: There is no retroperitoneal lymphadenopathy in the upper abdomen. Fluid: There is no ascites in the upper abdomen. Visualized bowel: The visualized bowels loops are unremarkable in appearance. Visualized bones: The visualized bones demonstrate normal marrow signal intensity. There is slight spondylolisthesis of L3 on L4. MR/MR abdomen wo/w con IMPRESSION: Bilateral renal cysts as described. No cause for the patient's jaundice is identified. Electronically signed by: Liborio Whitaker MD 04/15/2025 07:09 AM EDT
[2025-04-14] MEDS: gadobutroL 7.5 ML VIAL IVPUSH (15:55)
== END 2025-04-14 14:50 | disposition home or self-care (01) ==
LOC: HO.MRI 14:49
PROVIDERS: PCP Internal Medicine; Visit Provider Internal Medicine Gastroenterology
DX: R17 Unspecified jaundice (principal)
CPT/HCPCS: 74183; A9585

== ENCOUNTER → 2025-04-14 15:05 | Outpatient (BNV) | payer MEDICARE, SELFPAY | PROVIDERS: PCP Internal Medicine; Visit Provider Radiology Diagnostic Radiology | DX: N20.0 Calculus of kidney (principal) | CPT/HCPCS: 74183 ==

== ENCOUNTER 2025-04-25 10:38 | Outpatient (REF) | payer MEDICARE, SELFPAY ==
--- OUTSIDE RECORDS SUMMARY | 2025-04-25 11:30 | XMS_ITS | Patient Health Record ---
Author Organization [facility] Address [address] [place] [phone] Care Team Providers Care Living Manager Name Role Phone Bernadette MACHUCA, Esa Primary Care Provider Mike Dominguez Jr Unavailable Allergies Allergen (clinical drug ingredient) Drug/Non Drug Allergy documented on EMR Reaction Allergy Type Onset Date Status codeine Codeine Unknown Drug Allergy Active Results Component Value Reference Range Notes Prothrombin Time INR Reviewed date:04/05/2025 04:18:16 PM Interpretation: Performing Lab:[address] [address] Notes/Report: Prothrombin Time 9.7 10.9-12.4 SEC INTERNATIONAL NORM RATIO 0.8 0.9-1.1 INTERNATIONAL NORMALIZED RATIO (INR) REFERENCE RANGES Reference Range For patients not on anticoagulant therapy: 0.9 - 1.1 INR ranges for oral anticoagulant therapy: For prevention and treatment of venous thrombosis and pulmonary embolism: 2.0 - 3.0 For acute myocardial infarction with aspirin therapy: 2.0 - 3.0 For acute myocardial infarction without aspirin therapy: 3.0 - 4.0 For patients with mechanical prosthetic heart valves: 2.5 - 3.5 Liver Fibrosis Pnl Reviewed date:04/19/2025 02:40:59 PM Interpretation: Performing Lab:[facility], [address] [place] [phone] Notes/Report: Liver Fibrosis Score 0.83 Liver Fibrosis Stage F4 Liver Fibrosis Interpretation SEE NOTE severe fibrosis Fibro Test Score (f) Metavir Score f>=0 and f<=0.21 : F0 (no fibrosis) f>0.21 and f<=0.27 : F0-F1 (no fibrosis) f>0.27 and f<=0.31 : F1 (minimal fibrosis) f>0.31 and f<=0.48 : F1-F2 (minimal fibrosis) f>0.48 and f<=0.58 : F2 (moderate fibrosis) f>0.58 and f<=0.72 : F3 (advanced fibrosis) f>0.72 and f<=0.74 : F3-F4 (advanced fibrosis) f>0.74 and f<=1.00 : F4 (severe fibrosis) Nec Inflam Act Score 0.89 Nec Inflam Act Grade A3 Nec Inflam Act Interpretation SEE NOTE severe activity ActiTest Score (a) Metavir Score a>=0 and a<=0.17 : A0 (no activity) a>0.17 and a<=0.29 : A0-A1 (no activity) a>0.29 and a<=0.36 : A1 (minimal activity) a>0.36 and a<=0.52 : A1-A2 (minimal activity) a>0.52 and a<=0.60 : A2 (significant activity) a>0.60 and a<=0.62 : A2-A3 (significant activity) a>0.62 and a<=1.00 : A3 (severe activity) EYD-Vgkuh-4-Macroglobulin 171 106-279 mg/dL FIB-Haptoglobin 60 43-212 mg/dL Check if haemolysis as bilirubin is high and haptoglobin low. FIB-Apolipoprotein A1 115 101-198 mg/dL FIB-Total Bilirubin 6.0 0.2-1.2 mg/dL Suspicion of Gilbert syndrome or hemolysis, check non conjugated bilirubin. Check if haemolysis as bilirubin is high and haptoglobin low. Unusual deviation with median value. FIB-GGT 48 3-65 U/L Suspicion of Gilbert syndrome or hemolysis, check non conjugated bilirubin. FIB-ALT 179 6-29 U/L Reference ID [id number] Footnote SEE NOTE The reliability of results is dependent on compliance with the preanalytical and analytical conditions recommended by [employer]. The tests have to be deferred for: acute hemolysis, acute hepatitis, acute inflammation, extra hepatic cholestasis. The advice of a specialist should be sought for interpretation in chronic hemolysis and Gilbert's syndrome. The test interpretation is not validated in liver transplant patients. Isolated extreme values of one of the components should lead to caution in interpreting the results. In case of discordance between a biopsy result and a test, it is recommended to seek the advice of a specialist. The causes of these discordances could be due to a flaw of the test or to a flaw in the biopsy: i.e. a liver biopsy has a 33% variability rate for one fibrosis stage. FibroTest is interpretable for chronic hepatitis B and C, alcoholic and non alcoholic steatosis. ActiTest is interpretable for chronic hepatitis B and C. The performance characteristics have been determined by [facility]. It has not been cleared or approved by the U.S. Food and Drug Administration. Performance characteristics refer to the analytical performance of the test. [employer], the associated logo, [employer] and all associated [employer] francis are the registered trademarks of [employer]. All third green party francis - (R) and (TM) - are the property of their respective owners. (C) [id number] [place]. All rights reserved. THIS TEST WAS PERFORMED AT: [facility] [facility] [address] [place] [address] EMMY SANCHEZ MD,PHD,BUD Complete Blood Count Auto Di ff Reviewed date:03/28/2025 08:01:40 AM Interpretation: Performing Lab:[facility], [address] [place] [phone] Notes/Report: White Blood Count 6.2 4.8-10.8 X10*3/uL Red Blood Count 4.77 4.20-5.50 X10*6/uL Hemoglobin 14.6 12.0-16.0 g/dl Hematocrit 44.7 37.0-47.0 % Mean Corpuscular Volume 93.7 80.0-98.0 fL Mean Corpuscular Hemoglobin 30.6 27.0-33.0 pg Mean Corpuscular HGB Conc 32.7 31.0-35.0 g/dl Red Cell Distribution Width 14.2 11.0-16.0 % Platelet Count 364 160-400 X10*3/uL Mean Platelet Volume 10.5 9.4-12.3 fL Neutrophils Percent Auto 63.2 45-73 % Imm Gran Pct Auto 0.7 0.0-0.4 % Lymphocytes Percent Auto 22.8 20-40 % Monocytes Percent Auto 9.8 2-11 % Eosinophils Percent Auto 2.8 0-4 % Basophils Percent Auto 0.7 0-2 % NRBC Pct Auto 0.0 0.0-0.2 /100WBC Neutrophils Absolute Auto 3.9 2.0-8.3 x10*3/u L Imm Gran Abs Auto 0.04 0.00-0.03 X10*3/uL Lymphocytes Absolute Auto 1.4 1.2-4.9 X10*3/u L Monocytes Absolute Auto 0.6 0.1-1.2 X10*3/uL Eosinophils Absolute Auto 0.2 0.0-0.4 X10*3/u L Basophils Absolute Auto 0.0 0.0-0.2 X10*3/uL NRBC Abs Auto 0.000 0.0-0.012 X10*3/uL Prothrombin Time INR Reviewed date:03/28/2025 08:01:31 AM Interpretation: Performing Lab:[address] [phone] Notes/Report: Prothrombin Time 9.4 10.9-12.4 SEC INTERNATIONAL NORM RATIO 0.8 0.9-1.1 INTERNATIONAL NORMALIZED RATIO (INR) REFERENCE RANGES Reference Range For patients not on anticoagulant therapy: 0.9 - 1.1 INR ranges for oral anticoagulant therapy: For prevention and treatment of venous thrombosis and pulmonary embolism: 2.0 - 3.0 For acute myocardial infarction with aspirin therapy: 2.0 - 3.0 For acute myocardial infarction without aspirin therapy: 3.0 - 4.0 For patients with mechanical prosthetic heart valves: 2.5 - 3.5 Partial Thromboplastin Time Reviewed date:03/28/2025 08:01:25 AM Interpretation: Performing Lab:[address] [address] Notes/Report: Partial Thromboplastin Time 34.3 26.0-36.8 SEC For information regarding the monitoring of direct thrombin inhibitors, please refer to Pharmacy. Liver Panel Reviewed date:03/28/2025 08:00:48 AM Interpretation: Performing Lab:[facility], [address] [place] [phone] Notes/Report: Bilirubin Total 9.7 0.0-1.0 mg/dL Mild Icteru s. Bilirubin Direct 6.9 0.0-0.5 mg/dL Mild Icter us. Aspartate Amino Transferase 241 5-31 U/L Alanine Aminotransferase 470 0-31 U/L Total Protein 7.1 6.5-8.0 g/dL Albumin Level 4.3 3.5-5.0 g/dL Alkaline Phosphatase 357 39-117 U/L IRON PROFILE Reviewed date:03/28/2025 08:00:59 AM Interpretation: Performing Lab:[address] [phone] Notes/Report: Iron 75 30-160 mcg/dL Total Iron Binding Capacity 303 228-428 mcg/dL Percent Iron Saturation 25 15-50 % Unsaturated Iron Binding 228 Ferritin Reviewed date:03/28/2025 08:00:16 AM Interpretation: Performing Lab:[facility], [address] [place] [address] Notes/Report: Ferritin 504 10-250 ng/mL Lipase Reviewed date:03/28/2025 07:59:55 AM Interpretation: Performing Lab:[address] [address] Notes/Report: Lipase 39 8-78 U/L CHRIS Reflex Titer and Pattern Reviewed date:03/31/2025 11:00:11 AM Interpretation: Performing Lab:[address] [address] Notes/Report: Anti Nuclear Antibody Screen POSITIVE NEGATIVE CHRIS IFA is a first line screen for detecting the presence of up to approximately 150 autoantibodies in various autoimmune diseases. A positive CHRIS IFA result is suggestive of autoimmune disease and reflexes to titer and pattern. Further laboratory testing may be considered if clinically indicated. For additional information, please refer to http://education.Bildero/faq/FAQ1 77 (This link is being provided for informational/ educational purposes only.) Anti Nuclear Antibody Titer 1:80 A low level CHRIS titer may be present in pre-clinical autoimmune diseases and normal individuals. Reference Range <1:40 Negative 1:40-1:80 Low Antibody Level >1:80 Elevated Antibody Level Anti Nuclear Antibody Pattern Nuclear, Nucleolar Nucleolar pattern is associated with systemic sclerosis (scleroderma), systemic sclerosis/polymyositis overlap and Sjogren's syndrome. AC-8,9,10: Nucleolar International Consensus on CHRIS Patterns (https://doi.org/10151 5zsup-0104-3416) CHRIS Titer 2 1:80 A low level CHRIS titer may be present in pre-clinical autoimmune diseases and normal individuals. Reference Range <1:40 Negative 1:40-1:80 Low Antibody Level >1:80 Elevated Antibody Level CHRIS Pattern 2 Nuclear, Speckled Speckled pattern is associated with mixed connective tissue disease (MCTD), systemic lupus erythematosus (SLE), Sjogren's syndrome, dermatomyositis, and systemic sclerosis/polymyositis overlap. AC-2,4,5,29: Speckled International Consensus on CHRIS Patterns (https://doi.org/10151 5xhgz-4679-7910) CHRIS Titer 3 1:80 A low level CHRIS titer may be present in pre-clinical autoimmune diseases and normal individuals. Reference Range <1:40 Negative 1:40-1:80 Low Antibody Level >1:80 Elevated Antibody Level CHRIS Pattern 3 Mitotic, Spindle Fibers Abnormal Flag: A The spindle fibers between the poles are stained in mitotic cells, associated with cone-shaped decoration of the mitotic poles. The pattern is rare in Sjogren's syndrome, systemic lupus erythematosus (SLE), and other connective tissue diseases. AC-25: Spindle Fibers International Consensus on CHRIS Patterns (https://doi.org/10151 gwqx-3415-7193) THIS TEST WAS PERFORMED AT: [facility] [address] [place] [phone] JULIAN MENDOZA MD Mitochondrial Antibody Reviewed date:03/31/2025 08:50:38 AM Interpretation: Performing Lab:[facility], [address] [place] [phone] Notes/Report: Mitochondrial Antibodies NEGATIVE NEGATIVE THIS TEST WAS PERFORMED AT: [facility] [address] [place] [phone] UJLIAN MENDOZA MD Mitochondrial Ab Titer TNP Smooth Muscle Antibody Reviewed date:03/31/2025 08:50:32 AM Interpretation: Performing Lab:[facility], [address] [place] [phone] Notes/Report: Smooth Muscle Antibody <20 <20 U Reference Range: <20 U: Negative >or=20 U: Positive Antibodies recognizing actin are the main component of smooth muscle antibodies associated with auto- immune liver disease. Actin antibodies are found in approximately 75% of patients with autoimmune hepatitis (AIH) type 1, approximately 65% of patients with autoimmune cholangitis, approximately 30% of patients with primary biliary cirrhosis and approximately 2% of healthy controls. High values are closely correlated with AIH type 1. THIS TEST WAS PERFORMED AT: [facility] [id number] [place] [phone] LEONIE ISBELL MD,PHD Complete Blood Count no Diff Reviewed date:04/05/2025 04:22:55 PM Interpretation: Performing Lab:[facility], [address] [place] [phone] Notes/Report: White Blood Count 5.5 4.8-10.8 X10*3/uL Red Blood Count 4.74 4.20-5.50 X10*6/uL Hemoglobin 14.6 12.0-16.0 g/dl Hematocrit 43.9 37.0-47.0 % Mean Corpuscular Volume 92.6 80.0-98.0 fL Mean Corpuscular Hemoglobin 30.8 27.0-33.0 pg Mean Corpuscular HGB Conc 33.3 31.0-35.0 g/dl Red Cell Distribution Width 14.1 11.0-16.0 % Platelet Count 352 160-400 X10*3/uL Mean Platelet Volume 10.2 9.4-12.3 fL NRBC Pct Auto 0.0 0.0-0.2 /100WBC NRBC Abs Auto 0.000 0.0-0.012 X10*3/uL Partial Thromboplastin Time Reviewed date:04/05/2025 04:22:48 PM Interpretation: Performing Lab:[address] [phone] Notes/Report: Partial Thromboplastin Time 34.4 26.0-36.8 SEC For information regarding the monitoring of direct thrombin inhibitors, please refer to Pharmacy. Liver Panel Reviewed date:04/05/2025 04:22:41 PM Interpretation: Performing Lab:[facility], [address] [place] [phone] Notes/Report: Bilirubin Total 6.4 0.0-1.0 mg/dL Mild Icteru s. Bilirubin Direct 4.6 0.0-0.5 mg/dL Mild Icter us. Aspartate Amino Transferase 165 5-31 U/L Alanine Aminotransferase 245 0-31 U/L Total Protein 6.7 6.5-8.0 g/dL Albumin Level 4.0 3.5-5.0 g/dL Alkaline Phosphatase 304 39-117 U/L Blood Urea Nitrogen Reviewed date:04/05/2025 04:22:34 PM Interpretation: Performing Lab:[facility], [address] [place] [phone] Notes/Report: Blood Urea Nitrogen 24 9-16 mg/dL Creatinine Reviewed date:04/05/2025 04:18:59 PM Interpretation: Performing Lab:[facility], [address] [place] [phone] Notes/Report: Creatinine 0.86 0.5-1.4 mg/dL Mild Icterus.I nterpret result with caution. Estimated Glomerular Filt Rate > 60 Chronic Kidney Disease: Estimated GFR < 60 mL/min/1.73m2 Severe Kidney Disease: Estimated GFR < 15 mL/min/1.73m2 MR abdomen wo/w con Reviewed date:04/19/2025 02:41:16 PM Interpretation: Performing Lab: Notes/Report: [address] [address] Magnetic Resonance Report Signed Patient: Laya Hidalgo MR#: [id number] 642 : 1955 Acct:[id number] Age/Sex: 70 / F ADM Date: 04/14/25 Loc: HO.MRI Attending Dr: Mike Beavers MD Ordering Physician: Mike Beavers MD Date of Service: 04/14/25 Procedure(s): MR abdomen wo/w con Accession Number(s): [id number] cc: Esa Fleming MD; Mike Beavers MD EXAMINATION: MR ABDOMEN WITHOUT THEN WITH IV CONTRAST HISTORY: Jaundice. COMPARISON: Correlation is made with an abdominal ultrasound dated 03/22/2025. TECHNIQUE: Axial in and out of phase T1-weighted gradient echo, axial diffusion weighted, and axial and coronal HASTE T2 with fat saturation images were obtained through the abdomen. 3D MRCP Reconstructed and thin and thick slab images of the biliary tree were obtained. Subsequently, fat suppressed axial and coronal T1-weighted images were obtained after the intravenous administration of 7 mL Gadavist. FINDINGS: Liver: There is no loss of signal intensity in the liver on opposed phase imaging to suggest steatosis. There is no enhancing liver mass. The hepatic and portal veins are patent. There is no intra- or extrahepatic biliary dilatation. Gallbladder: No gallstones are identified. Spleen: The spleen is unremarkable. Pancreas: The pancreas is unremarkable. There is no enhancing pancreatic mass. The pancreatic duct is normal in caliber. Adrenals: The adrenal glands are unremarkable. Kidneys: There is a 10 mm cyst in the interpolar region of the right kidney and an 8 mm cyst in the interpolar region of the left kidney. There is no hydronephrosis. Lymph nodes: There is no retroperitoneal lymphadenopathy in the upper abdomen. Fluid: There is no ascites in the upper abdomen. Visualized bowel: The visualized bowels loops are unremarkable in appearance. Visualized bones: The visualized bones demonstrate normal marrow signal intensity. There is slight spondylolisthesis of L3 on L4. MR/MR abdomen wo/w con IMPRESSION: Bilateral renal cysts as described. No cause for the patient's jaundice is identified. Electronically signed by: Liborio Whitaker MD 04/15/2025 07:09 AM EDT Dictated By: Liborio Whitaker MD Signed By: <Electronically signed by Liborio Whitaker MD in OV> 04/15/25 0709 DD/ 1505 TD/TT: 04/14/25 1535 Pasting Inspector: Reason For Referral No Information Medications Medication SIG (Take, Route, Frequency, Duration) Notes Start Date End Date Status Multi Vitamin/Minerals - as directed Ora lly once a day Active Immunizations Vaccine Route Administration Date Status Comme nts Influenza Unknown 07/29/2018 Administered Influenza Unknown 07/06/2024 Administered Social History Tobacco Use: Social History Observation Description Date Details (start date - stop date) Never Smoker NA - NA Tobacco Use/Smoking Question Answer Notes Patient is a nonsmoker Alcohol Screen Question Answer Notes Did you [...] Problem Status W/U Status Risk Notes Problem 822142467 Colon cancer screening (Z12.11) Active confirmed Problem 314952647 Encounter for other preprocedural examination (Z01.818) Active confirmed Problem Jaundice (23085118) Jaundice (R17) Active confirmed Problem Blood chemistry abnormal (237779432) Elevated ferritin level (R79.89) Active confirmed Vital Signs Temperature 97.8 degrees Fahrenheit 03/23/2025 Blood pressure diastolic 01 mm Hg 03/23/2025 Height 60 in 03/23/2025 Blood pressure systolic 001 mm Hg 03/23/2025 Weight 160.2 lbs 03/23/2025 BMI 31.28 kg/m2 03/23/2025 Encounters Encounter Location Date Provider Diagnosis [facility] [address] [place] [phone] 03/23/2025 Mike Beavers Jr Jaundice R17 [facility] [address] [place] [phone] 03/22/2025 Mike Beavers Jr [facility] [address] [place] [phone] 03/31/2025 Mike Beavers Jr Jaundice R17 and Elevated ferritin level R79.89 [facility] [address] [place] [phone] 04/18/2025 Mike Beavers Jr Infectious gastroenteritis and colitis, unspecified A09 Assessments Encounter Date Diagnosis (ICD Code) Assessment Notes Treatment Notes Treatment Clinical Notes Section Notes 03/23/2025 Jaundice (ICD-10 - R17) We discussed her symptoms today. We discussed jaundice today. We discussed possible causes for this today. There does not appear to be any structural damage to her liver and the bile ducts appear normal. We discussed other causes for elevation of liver function tests including autoimmune liver disease and metabolic liver disease. Further blood work will be ordered to be done in 2 days. She may need further imaging depending on these results. She also may need liver biopsy. We discussed this today. For the time being we recommended she continue her present regimen and that she call us with the antipruritic agent that has been prescribed. Follow-up will be pending the results of her additional lab work. 03/31/2025 Jaundice (ICD-10 - R17) 03/31/2025 Elevated ferritin level (ICD-10 - R79.89) 04/18/2025 Infectious gastroenteritis and colitis, unspecified (ICD-10 - A09) Plan Of Treatment Pending Test Test Name Order Date BUN 03/31/2025 CREATININE 03/31/2025 LIVER PROFILE 03/23/2025 LIVER PROFILE 03/31/2025 LIPASE 03/23/2025 IRON + IBC (FE) 03/23/2025 FERRITIN 03/23/2025 CBC w/o DIFF 03/23/2025 CBC w/o DIFF 03/31/2025 PROTHROMBIN TIME (PT, INR) 03/23/2025 PARTIAL THROMBOPLASTIN TIME (PTT) 2024 MITOCHONDRIAL AB 03/23/2025 SMOOTH MUSCLE ANTIBODIES 03/23/2025 MRI ABD W&WO CONTRAST 03/31/2025 Anti Nuclear Antibody Titer 03/23/2025 MR abdomen wo/w con 03/31/2025 Future Test Test Name Order Date COLONOSCOPY 01/07/2019 Next Appt Details Provider Name:Mike reed , 08/15/2025 09:20:00 AM, [address] [place] [address], [address], [place], [address], Insurance Providers Payer Name Payer Address Payer Phone Subscriber Number Group Number Insured Name Patient Relationship to Insured Coverage Start Date Coverage End Date [facility] [address] [facility] [place] [phone] [id number] LAYA DENSON Self - patient is the insured 4 Medical (General) History Medical History History ICD Code Colonoscopy 04/07, benign polyps, 10-year follow-up. Surgical History Surgery Date(Month/Year)
[2025-04-25 13:33] LABS: Alanine Aminotransferase 114 U/L (0-31); Albumin Level 4.1 g/dL (3.5-5.0); Alkaline Phosphatase 161 U/L (39-117); Aspartate Amino Transferase 66 U/L (5-31); Total Protein 6.5 g/dL (6.5-8.0)
== END 2025-04-25 10:39 | disposition home or self-care (01) ==
LOC: HO.LNP 10:38
PROVIDERS: Visit Provider Internal Medicine
DX: R79.89 Other specified abnormal findings of blood chemistry (principal)
CPT/HCPCS: 80076

== ENCOUNTER 2025-05-26 07:20 | Outpatient (REF) | payer MEDICARE, SELFPAY ==
--- OUTSIDE RECORDS SUMMARY | 2025-05-26 07:24 | XMS_ITS | Encounter Summary ---
Author Organization [facility] Address [address] [place] [phone] Phone Care Team Providers Care Community Advocate Name Role Phone Esa Fleming MD Primary Care Provider Encounter Details Date Type Department Care Team (Late st Contact Info) Description 08/06/2019 Ancillary Orders Virtual Department [address] [place] [address] Esa Fleming MD [address] [place] [phone] Breast screening Social History Tobacco Use Types Packs/Day Years Used Date Smoking Tobacco: Never Assessed Comments Unknown Sex and Gender Information Value Date Recorded Sex Assigned at Not on file Legal Sex Female 9:54 PM EDT Gender Identity Not on file Sexual Orientation Not on file documented as of this encounter Plan of Treatment Not on file documented as of this encounter Results * BI MAMMOGRAM SCREENING WITH TOMOSYNTHESIS WITH CAD (BILATERAL) (10/01/2019 7:40 AM EST) Anatomical Region Laterality Modality Breast Left, Breast Right, Breast Bilateral Bila teral Mammography 10/01/2019 8:01 AM EST Impressions 10/01/2019 8:03 AM EST No mammographic evidence of malignancy. Recommend routine annual surveillance. BI-RADS CATEGORY: 1 - Negative. DENSITY: The breast tissue is heterogeneously dense, an appearance which lowers the sensitivity of mammography. POS - [id number] Narrative 10/01/2019 8:03 AM EST 64-year-old female with no current breast symptoms. Comparison made to previous on 12/09/2014 and as far back as 08/01/2005. Interpretation made in conjunction with computer-aided detection and tomosynthesis. The breasts are heterogeneously dense, which may obscure small masses. There are no suspicious masses, areas of architectural distortion, or suspicious clusters of microcalcifications. Procedure Note Purvi Li MD - 10/01/2019 64-year-old female with no current breast symptoms. Comparison made toprevious on 12/09/2014 and as far back as 08/01/2005. Interpretation madein conjunction with computer-aided detection and tomosynthesis. The breasts are heterogeneously dense, which may obscure small masses. There are no suspicious masses, areas of architectural distortion, orsuspicious clusters of microcalcifications. IMPRESSION: No mammographic evidence of malignancy. Recommend routine annualsurveillance. BI-RADS CATEGORY: 1 - Negative. DENSITY: The breast tissue is heterogeneously dense, an appearance whichlowers the sensitivity of mammography. POS - CDHMAM2 us Esa Fleming MD IMG MG EXAMS Final R esult documented in this encounter Visit Diagnoses Diagnosis Breast screening Breast screening, unspecified Breast screening Breast screening, unspecified documented in this encounter Care Teams Community Advocate Relationship Specialty Start Date End Date Esa Fleming MD [address] [place] [address] [place] [address] PCP - General 08/04/17 documented as of this encounter Additional Source Comments The information contained in this document represents components of the legal health record. It is not the complete legal health record.[facility]
--- OUTSIDE RECORDS SUMMARY | 2025-05-26 07:24 | XMS_ITS | Patient Health Record ---
Author Organization [facility] Address [address] [place] [phone] Care Team Providers Care Food Service Representative Name Role Phone Bernadette MACHUCA, Esa Primary Care Provider Mike Dominguez Jr Unavailable Allergies Allergen (clinical drug ingredient) Drug/Non Drug Allergy documented on EMR Reaction Allergy Type Onset Date Status codeine Codeine Unknown Drug Allergy Active Results Component Value Reference Range Notes Prothrombin Time INR Reviewed date:04/05/2025 04:18:16 PM Interpretation: Performing Lab:[address] [phone] Notes/Report: Prothrombin Time 9.7 10.9-12.4 SEC INTERNATIONAL [...] Pnl Reviewed date:04/19/2025 02:40:59 PM Interpretation: Performing Lab:[facility], [address] [place] [phone] Notes/Report: Liver Fibrosis Score 0.83 Liver Fibrosis [...] a>0.62 and a<=1.00 : A3 (severe activity) FNY-Kecio-9-Macroglobulin 171 106-279 mg/dL FIB-Haptoglobin 60 43-212 mg/dL [...] bilirubin. FIB-ALT 179 6-29 U/L Reference ID [id number] Footnote SEE NOTE The reliability of results [...] The performance characteristics have been determined by [facility]. It has not been cleared or approved by the U.S. Food and Drug Administration. Performance characteristics refer to the analytical performance of the test. [employer], the associated logo, [employer] and all associated [employer] francis are the registered trademarks of [employer]. All third republican francis - (R) and (TM) - are the property of their respective owners. (C) [id number] [employer]. All rights reserved. THIS TEST WAS PERFORMED AT: [employer] [facility] [address] [place] [address] EMMY SANCHEZ MD,PHD,BUD Complete Blood Count Auto Di ff Reviewed date:03/28/2025 08:01:40 AM Interpretation: Performing Lab:[facility], [address] [place] [phone] Notes/Report: White Blood Count 6.2 4.8-10.8 X10*3/uL [...] INR Reviewed date:03/28/2025 08:01:31 AM Interpretation: Performing Lab:[address] [address] Notes/Report: Prothrombin Time 9.4 10.9-12.4 SEC INTERNATIONAL [...] Time Reviewed date:03/28/2025 08:01:25 AM Interpretation: Performing Lab:[address] [phone] Notes/Report: Partial Thromboplastin Time 34.3 26.0-36.8 SEC For information regarding the monitoring of direct thrombin inhibitors, please refer to Pharmacy. Liver Panel Reviewed date:03/28/2025 08:00:48 AM Interpretation: Performing Lab:[facility], [address] [place] [phone] Notes/Report: Bilirubin Total 9.7 0.0-1.0 mg/dL Mild Icteru s. Bilirubin Direct 6.9 0.0-0.5 mg/dL Mild Icter us. Aspartate Amino Transferase 241 5-31 U/L Alanine Aminotransferase 470 0-31 U/L Total Protein 7.1 6.5-8.0 g/dL Albumin Level 4.3 3.5-5.0 g/dL Alkaline Phosphatase 357 39-117 U/L IRON PROFILE Reviewed date:03/28/2025 08:00:59 AM Interpretation: Performing Lab:[address] [phone] Notes/Report: Iron 75 30-160 mcg/dL Total Iron Binding Capacity 303 228-428 mcg/dL Percent Iron Saturation 25 15-50 % Unsaturated Iron Binding 228 Ferritin Reviewed date:03/28/2025 08:00:16 AM Interpretation: Performing Lab:[facility], [address] [place] [phone] Notes/Report: Ferritin 504 10-250 ng/mL Lipase Reviewed date:03/28/2025 07:59:55 AM Interpretation: Performing Lab:[address] [phone] Notes/Report: Lipase 39 8-78 U/L CHRIS Reflex Titer and Pattern Reviewed date:03/31/2025 11:00:11 AM Interpretation: Performing Lab:[address] [address] Notes/Report: Anti Nuclear Antibody Screen POSITIVE NEGATIVE CHRIS IFA is a first line screen for detecting the presence of up to approximately 150 autoantibodies in various autoimmune diseases. A positive CHRIS IFA result is suggestive of autoimmune disease and reflexes to titer and pattern. Further laboratory testing may be considered if clinically indicated. For additional information, please refer to http://education.MightyNest/faq/FAQ1 77 (This link is being provided for [...] [employer] International Consensus on CHRIS Patterns (https://doi.org/10151 5itxw-0016-7933) CHRIS Titer 2 1:80 A low level [...] Speckled International Consensus on CHRIS Patterns (https://doi.org/10151 5cauq-2313-3630) CHRIS Titer 3 1:80 A low level [...] [employer]ers International Consensus on CHRIS Patterns (https://doi.org/10151 xcka-3755-9215) THIS TEST WAS PERFORMED AT: [employer] [address] [place] [phone] JULIAN MENDOZA MD Mitochondrial Antibody Reviewed date:03/31/2025 08:50:38 AM Interpretation: Performing Lab:[facility], [address] [place] [phone] Notes/Report: Mitochondrial Antibodies NEGATIVE NEGATIVE THIS TEST WAS PERFORMED AT: [employer] [address] [place] [phone] JULIAN MENDOZA MD Mitochondrial Ab Titer TNP Smooth Muscle Antibody Reviewed date:03/31/2025 08:50:32 AM Interpretation: Performing Lab:[facility], [address] [place] [phone] Notes/Report: Smooth Muscle Antibody <20 <20 U [...] type 1. THIS TEST WAS PERFORMED AT: [facility] [id number] [place] [phone] LEONIE ISBELL MD,PHD Complete Blood Count no Diff Reviewed date:04/05/2025 04:22:55 PM Interpretation: Performing Lab:[facility], [address] [place] [phone] Notes/Report: White Blood Count 5.5 4.8-10.8 X10*3/uL [...] Time Reviewed date:04/05/2025 04:22:48 PM Interpretation: Performing Lab:[address] [address] Notes/Report: Partial Thromboplastin Time 34.4 26.0-36.8 SEC For information regarding the monitoring of direct thrombin inhibitors, please refer to Pharmacy. Liver Panel Reviewed date:04/05/2025 04:22:41 PM Interpretation: Performing Lab:[facility], [address] [place] [phone] Notes/Report: Bilirubin Total 6.4 0.0-1.0 mg/dL Mild Icteru s. Bilirubin Direct 4.6 0.0-0.5 mg/dL Mild Icter us. Aspartate Amino Transferase 165 5-31 U/L Alanine Aminotransferase 245 0-31 U/L Total Protein 6.7 6.5-8.0 g/dL Albumin Level 4.0 3.5-5.0 g/dL Alkaline Phosphatase 304 39-117 U/L Blood Urea Nitrogen Reviewed date:04/05/2025 04:22:34 PM Interpretation: Performing Lab:[facility], [address] [place] [phone] Notes/Report: Blood Urea Nitrogen 24 9-16 mg/dL Creatinine Reviewed date:04/05/2025 04:18:59 PM Interpretation: Performing Lab:[facility], [address] [place] [phone] Notes/Report: Creatinine 0.86 0.5-1.4 mg/dL Mild Icterus.I nterpret result with caution. Estimated Glomerular Filt Rate > 60 Chronic Kidney Disease: Estimated GFR < 60 mL/min/1.73m2 Severe Kidney Disease: Estimated GFR < 15 mL/min/1.73m2 MR abdomen wo/w con Reviewed date:04/19/2025 02:41:16 PM Interpretation: Performing Lab: Notes/Report: [address] [address] Magnetic Resonance Report Signed Patient: Laya Hidalgo MR#: [id number] [id number] : 1955 Acct:[id number] Age/Sex: 70 / F ADM Date: 04/14/25 Loc: HO.MRI Attending Dr: Mike Beavers MD Ordering Physician: Mike Beavers MD Date of Service: 04/14/25 Procedure(s): MR abdomen wo/w con Accession Number(s): [id number] cc: Esa Fleming MD; Mike Beavers MD [...] 04/15/25 0709 DD/ 1505 TD/TT: 04/14/25 1535 Vehicle Insurance Agent: Reason For Referral No Information Medications Medication [...] Problem Status W/U Status Risk Notes Problem 536603165 Colon cancer screening (Z12.11) Active confirmed Problem 694347251 Encounter for other preprocedural examination (Z01.818) Active confirmed Problem Jaundice (90439803) Jaundice (R17) Active confirmed Problem Blood chemistry abnormal (791955516) Elevated ferritin level (R79.89) Active confirmed Vital Signs Temperature 97.8 degrees Fahrenheit 03/23/2025 Blood pressure diastolic 01 mm Hg 03/23/2025 Height 60 in 03/23/2025 Blood pressure systolic 001 mm Hg 03/23/2025 Weight 160.2 lbs 03/23/2025 BMI 31.28 kg/m2 03/23/2025 Encounters Encounter Location Date Provider Diagnosis [facility] [address] [place] [phone] 03/23/2025 Mike Beavers Jr Jaundice R17 [facility] [address] [place] [phone] 03/22/2025 Mike Beavers Jr [facility] [address] [place] [phone] 03/31/2025 Mike Beavers Jr Jaundice R17 and Elevated ferritin level R79.89 [facility] [address] [place] [phone] 04/18/2025 Mike Beavers Jr Infectious gastroenteritis and colitis, unspecified A09 [facility] [address] [place] [phone] 04/27/2025 Mike Beavers Jr Jaundice R17 [facility] [address] [place] [address] 05/05/2025 Mike Beavers Jr Assessments Encounter Date Diagnosis (ICD Code) Assessment [...] gastroenteritis and colitis, unspecified (ICD-10 - A09) 04/27/2025 Jaundice (ICD-10 - R17) Plan Of Treatment Pending Test Test Name Order Date BUN 03/31/2025 CREATININE 03/31/2025 LIVER PROFILE 03/31/2025 LIVER PROFILE 04/27/2025 LIVER PROFILE 03/23/2025 LIPASE 03/23/2025 LIPASE 04/27/2025 IRON + IBC (FE) 03/23/2025 FERRITIN 03/23/2025 CBC w/o DIFF 03/31/2025 CBC w/o DIFF 03/23/2025 CBC w/o DIFF 04/27/2025 PROTHROMBIN TIME (PT, INR) 03/23/2025 PARTIAL THROMBOPLASTIN TIME (PTT) 2024 MITOCHONDRIAL AB 03/23/2025 SMOOTH MUSCLE ANTIBODIES 03/23/2025 MRI ABD W&WO CONTRAST 03/31/2025 Anti Nuclear Antibody Titer 03/23/2025 MR abdomen wo/w con 03/31/2025 Future Test Test Name Order Date COLONOSCOPY 01/07/2019 Next Appt Details Provider Name:Mike reed Jr, 08/15/2025 09:20:00 AM, [address] [facility], [address], [place], [address], Insurance Providers Payer Name Payer Address Payer Phone Subscriber Number Group Number Insured Name Patient Relationship to Insured Coverage Start Date Coverage End Date [facility] [address] [place] [phone] [id number] LAYA DENSON Self - patient is the insured 4 Medical (General) History Medical History History ICD Code Colonoscopy 04/07, benign polyps, 10-year follow-up. Surgical History Surgery Date(Month/Year)
[2025-05-26 08:17] LABS: Hematocrit 45.5 % (37.0-47.0); Hemoglobin 14.8 g/dl (12.0-16.0); Mean Corpuscular HGB Conc 32.5 g/dl (31.0-35.0); Mean Corpuscular Hemoglobin 30.6 pg (27.0-33.0); Mean Corpuscular Volume 94.2 fL (80.0-98.0); NRBC Abs Auto 0.000 X10*3/uL (0.0-0.012); NRBC Pct Auto 0.0 /100WBC (0.0-0.2); Platelet Count 284 X10*3/uL (160-400); Red Blood Count 4.83 X10*6/uL (4.20-5.50); White Blood Count 5.3 X10*3/uL (4.8-10.8)
[2025-05-26 08:49] LABS: Alanine Aminotransferase 28 U/L (0-31); Albumin Level 4.5 g/dL (3.5-5.0); Alkaline Phosphatase 90 U/L (39-117); Aspartate Amino Transferase 26 U/L (5-31); Lipase 22 U/L (8-78); Total Protein 6.9 g/dL (6.5-8.0)
== END 2025-05-26 07:21 | disposition home or self-care (01) ==
LOC: HO.LAB 07:20
PROVIDERS: PCP Internal Medicine; Visit Provider Internal Medicine Gastroenterology
DX: R17 Unspecified jaundice (principal)
CPT/HCPCS: 36415; 80076; 83690; 85027